=== PATIENT | female | born 1975 | race Caucasian/White ===

== ENCOUNTER → 2020-06-21 13:38 | Outpatient (BNVA) | payer SELFPAY | PROVIDERS: PCP Nurse Practitioner Family; Visit Provider Physician Assistant | DX: E66.9 Obesity, unspecified (principal); Z68.38 Body mass index [BMI] 38.0-38.9, adult; Z98.84 Bariatric surgery status | CPT/HCPCS: 99214 ==

== ENCOUNTER 2020-06-29 02:07 | Outpatient (REF) | payer MEDICAID, SELFPAY ==
[2020-06-29 04:57] LABS: SARS COV2 PCR INHOUSE NEGATIVE (Negative)
== END 2020-06-29 02:08 | disposition home or self-care (01) ==
LOC: HO.LAB 02:07
PROVIDERS: Visit Provider Internal Medicine
DX: Z20.828 Contact with and (suspected) exposure to other viral communicable diseases (principal)
CPT/HCPCS: 87635

== ENCOUNTER 2020-07-01 10:56 | Outpatient (REF) | payer MEDICAID, SELFPAY ==
[2020-07-01 11:17] LABS: COVID-19 Test Negative (Negative)
== END 2020-07-01 10:57 | disposition home or self-care (01) ==
LOC: HO.LAB 10:56
PROVIDERS: Visit Provider Internal Medicine
DX: Z20.828 Contact with and (suspected) exposure to other viral communicable diseases (principal)
CPT/HCPCS: 87635

== ENCOUNTER 2020-07-04 06:59 | Outpatient (REF) | payer MEDICAID, SELFPAY ==
[2020-07-04 07:40] LABS: MANUAL DIFF FLAG NO
[2020-07-04 07:46] LABS: Basophils Absolute Auto 0.1 X10*3/uL (0.0-0.2); Basophils Percent Auto 0.5 % (0-2); Eosinophils Absolute Auto 0.1 X10*3/uL (0.0-0.4); Eosinophils Percent Auto 0.5 % (0-4); Hematocrit 31.2 % (37-47); Hemoglobin 9.4 g/dl (12.0-16.0); Imm Gran Abs Auto 0.03 X10*3/uL (0.00-0.03); Imm Gran Pct Auto 0.3 % (0.0-0.4); Lymphocytes Absolute Auto 3.1 X10*3/uL (1.2-4.9); Lymphocytes Percent Auto 29.1 % (20-40); Mean Corpuscular HGB Conc 30.1 g/dl (31.0-35.0); Mean Corpuscular Hemoglobin 25.3 pg (27.0-33.0); Mean Corpuscular Volume 84.1 fL (80-98); Mean Platelet Volume 9.1 fL (9.4-12.3); Monocytes Absolute Auto 0.5 X10*3/uL (0.1-1.2); Monocytes Percent Auto 4.9 % (2-11); Neutrophils Absolute Auto 6.8 X10*3/uL (2.0-8.3); Neutrophils Percent Auto 64.7 % (45-73); Platelet Count 570 X10*3/uL (160-400); Red Blood Count 3.71 X10*6/uL (4.20-5.50); Red Cell Distribution Width 14.2 % (11.0-16.0); White Blood Count 10.5 X10*3/uL (4.8-10.8)
[2020-07-04 08:33] LABS: C Reactive Protein 0.27 mg/dL (< or = 0.50); Cholesterol 221 mg/dL; HDL Cholesterol 56 mg/dL; Iron 16 mcg/dL (30-160); LDL Cholesterol Calculated 133 mg/dl; Percent Iron Saturation 3 % (15-50); Total Iron Binding Capacity 463 mcg/dL (228-428); Triglycerides 162 mg/dL; Unsaturated Iron Binding 447 ug/dL
[2020-07-04 08:59] LABS: TSH reflex Free T4 2.37 mIU/mL (0.32-4.0); Vitamin D 25-OH Total 14.7 ng/mL (>30)
[2020-07-04 09:50] LABS: Estimated Average Glucose 108 mg/dL; Hemoglobin A1c % 5.4 %
[2020-07-04 10:08] LABS: Folate 8.8 ng/mL (> or = 4.0); Vitamin B12 474 pg/mL (200-900)
[2020-07-04 10:34] LABS: Ferritin < 1 ng/mL (10-250)
[2020-07-05 19:27] LABS: Calcium (PTHI) 9.2 mg/dL (8.6-10.2); PTHI 77 pg/mL (14-64)
[2020-07-08 13:07] LABS: Vitamin B1 <6 nmol/L (8-30)
[2020-07-08 21:32] LABS: Zinc 70 mcg/dL (60-130)
[2020-07-10 13:42] LABS: Vitamin A 53 mcg/dL (38-98)
== END 2020-07-04 07:00 | disposition home or self-care (01) ==
LOC: HO.LAB 06:59
PROVIDERS: PCP Nurse Practitioner Family; Visit Provider Physician Assistant
DX: E66.3 Overweight (principal); Z98.84 Bariatric surgery status
CPT/HCPCS: 36415; 80061; 82306; 82607; 82728; 82746; 83036; 83525; 83540; 83970; 84425; 84443; 84590; 84630; 85025; 86140

== ENCOUNTER 2020-07-05 06:28 | Outpatient (REF) | payer MEDICAID, SELFPAY ==
[2020-07-05 06:49] LABS: COVID-19 Test Negative (Negative)
== END 2020-07-05 06:29 | disposition home or self-care (01) ==
LOC: HO.LAB 06:28
PROVIDERS: Visit Provider Internal Medicine
DX: Z20.828 Contact with and (suspected) exposure to other viral communicable diseases (principal)
CPT/HCPCS: 87635

== ENCOUNTER 2020-07-26 17:17 | Outpatient (REF) | payer OTHER, SELFPAY ==
[2020-07-27 10:13] LABS: COVID-19 Test Negative (Negative); IDNOW Serial# 55D5AD1C
== END 2020-07-26 17:18 | disposition home or self-care (01) ==
LOC: HO.EMPCOV 17:17
PROVIDERS: PCP Nurse Practitioner Family; Visit Provider Internal Medicine
DX: Z20.828 Contact with and (suspected) exposure to other viral communicable diseases (principal)
CPT/HCPCS: 87635; C9803

== ENCOUNTER 2020-12-12 03:41 | Emergency (ER) | payer MEDICAID, SELFPAY ==
--- NOTE | 2020-12-12 | ECG_ITS ---
Test Reason : CP Blood Pressure : / mmHG Vent. Rate : 074 BPM Atrial Rate : 074 BPM P-R Int : 170 ms QRS Dur : 098 ms QT Int : 402 ms P-R-T Axes : 035 029 017 degrees QTc Int : 446 ms Normal sinus rhythm Normal ECG No previous ECGs available Referred By: Dora Wooten Electronically Signed By:KARTHIK AMIN MD
--- NOTE | ~2020-12-12 | XR_ITS ---
EXAMINATION: XR CHEST CLINICAL INFORMATION: Chest pain COMPARISON: 06.29.2018 TECHNIQUE: Frontal view of the chest was obtained. FINDINGS: No significant abnormality is noted involving the heart, lungs, mediastinum, bony thorax or soft tissues. XR/XR chest 1V IMPRESSION: Unremarkable examination.
[2020-12-12 03:47] VITALS: BP 150/84; PULSE 72; RESP 13; TEMP 36.9; O2SAT 100; BMI 35.5
[2020-12-12 03:53] VITALS: BP 150/84; PULSE 74; RESP 17; TEMP 36.9; O2SAT 100
[2020-12-12 04:00] VITALS: BP 142/91; PULSE 72; RESP 14
--- NOTE | 2020-12-12 04:12 | ED_ITS ---
HPI - Chest Pain General Chief Complaint: Chest Pain Stated Complaint: chest pain Time Seen by Provider: 12/12/20 04:12 History of Present Illness HPI narrative: Patient is a 45-year-old female presents today for having chest pain. The pain is mid chest. It is dull. It is associated with no shortness of breath. No diaphoresis. No fever. Patient denies any history of coughing congestion upper respiratory symptoms. 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 Patient has a history of hypertension. Family history of coronary artery disease. No history of smoking. Never had heart attack. Never had a stroke. Has a history of SVT in the past. Patient had recent stressful event at home. Related Data Home Medications Medication Instructions Recorded Confirmed gabapentin 600 mg tablet 600 mg PO TID 06/21/20 07/07/20 lisinopril 20 mg tablet 20 mg PO DAILY 06/21/20 07/07/20 loratadine 10 mg tablet 10 mg PO DAILY 06/21/20 07/07/20 metoprolol succinate 25 mg 12.5 mg PO DAILY 06/21/20 07/07/20 tablet,extended release 24 hr montelukast 10 mg tablet 10 mg PO DAILY 06/21/20 07/07/20 ondansetron HCl 4 mg tablet 4 mg PO Q6H 06/21/20 07/07/20 pantoprazole 40 mg tablet,delayed 40 mg PO DAILY 06/21/20 07/07/20 release tramadol 50 mg tablet 50 mg PO Q6H PRN 06/21/20 07/07/20 venlafaxine 150 mg 150 mg PO DAILY 06/21/20 07/07/20 capsule,extended release 24 hr venlafaxine 75 mg capsule,extended 75 mg PO DAILY 06/21/20 07/07/20 release 24 hr ferrous sulfate 325 mg (65 mg 325 mg PO DAILY 07/07/20 07/07/20 iron) tablet tranexamic acid 650 mg tablet 1,300 mg PO TID 07/07/20 07/07/20 Previous Rx's Medication Instructions Recorded cholecalciferol (vitamin D3) 50 50 mcg PO DAILY #30 cap 07/07/20 mcg (2,000 unit) capsule Allergies Allergy/AdvReac Type Severity Reaction Status Date / Time griseofulvin Allergy Severe RASH Verified 12/12/20 04:35 [From BIJU-PEG (ULTRAMICROSIZE)] shellfish derived Allergy Severe SWELLING Verified 12/12/20 04:35 [SHELLFISH DERIVED] avocado [AVOCADO] Allergy Unknown SWELLING Verified 12/12/20 04:35 iodine [IODINE] Allergy Unknown RASH Verified 12/12/20 04:35 nut - unspecified [NUTS] Allergy Unknown SWELLING Verified 12/12/20 04:35 peach [PEACHES] Allergy Unknown SWELLING Verified 12/12/20 04:35 Biju-PEG Allergy Unknown rash Uncoded 03/24/20 00:00 shellfish Allergy Unknown rash Uncoded 05/03/14 00:00 SHELLFISH, Avocado Allergy Unknown swelling Uncoded 03/24/20 00:00 Review of Systems Review of Systems: Positive chest pain No cough no congestion or upper respiratory symptoms All systems reviewed otherwise negative Yes all other systems are reviewed and are negative [facility] Past Medical History Attestation statement: The following information was validated with the patient. Medical History Arthritis Back injury Depression Gastric band malfunction Hypertension Obesity Tonsillectomy planned Surgical History H/O fasciotomy History of carpal tunnel release History of lumbar laminectomy Hx laparoscopic cholecystectomy S/P gastric bypass Social History Social History Smoking Status: Never smoker Advance Directives: No Advance Directives Information Provided: No Physical Exam Vital Signs: Vital Signs: Last Vital Signs Temp 98.4 F 12/12/20 03:53 Pulse 72 12/12/20 04:00 Resp 14 12/12/20 04:00 BP 142/91 H 12/12/20 04:00 Pulse Ox 100 12/12/20 03:53 Body Mass Index 35.5 Appearance: Alert. Oriented X3. No acute distress. Eyes: Pupils equal, round and reactive to light. ENT: Pharynx normal. Neck: Normal inspection. Neck supple. No lymph nodes noted. No crepitus CVS: Normal heart rate and rhythm. Pulses normal. Normal S1 and S2 Respiratory: No respiratory distress. Breath sounds normal. No Wheezing. No rales Abdomen: Soft and nontender. No rigidity. No distention. good BS x4 Skin: Skin warm and dry. Normal skin color. Normal skin turgor. Extremities: No lower extremity edema. Neurovascular intact to all extremities. No Lacerations. No Rash Neuro: Oriented X 3. No motor deficit. No sensory deficit. Moving all extermities. No slurred speech MDM - Chest Pain MDM Narrative Medical decision making narrative: Patient's history not consistent with myocardial infarction. She does have 2 risk factors. Her chest pain started j ust prior to arrival. Her 1st set of troponin is negative. Asked patient to get a 2nd set of troponin but she refused. She has to send her kids off to school. Patient told the condition worsen to return. She understood that she is taking some risk by not having a 2nd set enzyme when she does not have chest pain for more than 6 hours. Patient states understanding. Understood there is risk of myocardial infarction. She is going to follow up closely with her doctor. Her symptoms have since resolved. Currently stable condition. Lab Data Result diagrams: 12/12/20 04:27 12/12/20 04:27 Labs: Lab Results 12/12/20 12/12/20 12/12/20 Range/Units 04:27 04:27 04:27 WBC 9.7 (4.8-10.8) X10*3/uL RBC 3.86 L (4.20-5.50) X10*6/uL Hgb 8.3 L (12.0-16.0) g/dl Hct 29.3 L (37-47) % MCV 75.9 L (80-98) fL MCH 21.5 L (27.0-33.0) pg MCHC 28.3 L (31.0-35.0) g/dl RDW 17.8 H (11.0-16.0) % Plt Count 464 H (160-400) X10*3/uL MPV 9.2 L (9.4-12.3) fL Immature Gran % (Auto) 0.4 (0.0-0.4) % Neut % (Auto) 57.5 (45-73) % Lymph % (Auto) 33.2 (20-40) % [place] % (Auto) 6.0 (2-11) % Eos % (Auto) 2.5 (0-4) % Baso % (Auto) 0.4 (0-2) % Lymph # (Auto) 3.2 (1.2-4.9) X10*3/uL [place] # (Auto) 0.6 (0.1-1.2) X10*3/uL Eos # (Auto) 0.2 (0.0-0.4) X10*3/uL Baso # (Auto) 0.0 (0.0-0.2) X10*3/uL Abs Immat Gran (auto) 0.04 H (0.00-0.03) X10*3/uL Absolute Neuts (auto) 5.6 (2.0-8.3) X10*3/uL Absolute Nucleated RBC 0.000 (0.0-0.012) X10*3/uL Nucleated RBC % (auto) 0.0 (0.0-0.2) /100WBC Hold Blue Top SEE NOTE Sodium 138 (135-145) mmol/L Potassium 4.5 (3.3-5.1) mmol/L Chloride 106 (96-108) mmol/L Carbon Dioxide 24 (22-29) mmol/L Anion Gap 13 (12-20) BUN 14 (9-16) mg/dL Creatinine 0.81 (0.5-1.4) mg/dL Estim Creat Clear Calc 104.5 Estimated GFR > 60 Random Glucose 103 (60-115) mg/dL Calcium 8.9 (8.4-10.2) mg/dL Total Bilirubin 0.2 (0.0-1.0) mg/dL Direct Bilirubin < 0.2 (0.0-0.5) mg/dL AST 18 (5-31) U/L ALT 17 (0-31) U/L Alkaline Phosphatase 62 (39-117) U/L Troponin I High Sens (<3.5-17.0) ng/L Total Protein 6.6 (6.5-8.0) g/dL Albumin 3.9 (3.5-5.0) g/dL Lipase 36 (8-78) U/L 12/12/20 Range/Units 04:27 WBC (4.8-10.8) X10*3/uL RBC (4.20-5.50) X10*6/uL Hgb (12.0-16.0) g/dl Hct (37-47) % MCV (80-98) fL MCH (27.0-33.0) pg MCHC (31.0-35.0) g/dl RDW (11.0-16.0) % Plt Count (160-400) X10*3/uL MPV (9.4-12.3) fL Immature Gran % (Auto) (0.0-0.4) % Neut % (Auto) (45-73) % Lymph % (Auto) (20-40) % [place] % (Auto) (2-11) % Eos % (Auto) (0-4) % Baso % (Auto) (0-2) % Lymph # (Auto) (1.2-4.9) X10*3/uL [place] # (Auto) (0.1-1.2) X10*3/uL Eos # (Auto) (0.0-0.4) X10*3/uL Baso # (Auto) (0.0-0.2) X10*3/uL Abs Immat Gran (auto) (0.00-0.03) X10*3/uL Absolute Neuts (auto) (2.0-8.3) X10*3/uL Absolute Nucleated RBC (0.0-0.012) X10*3/uL Nucleated RBC % (auto) (0.0-0.2) /100WBC Hold Blue Top Sodium (135-145) mmol/L Potassium (3.3-5.1) mmol/L Chloride (96-108) mmol/L Carbon Dioxide (22-29) mmol/L Anion Gap (12-20) BUN (9-16) mg/dL Creatinine (0.5-1.4) mg/dL Estim Creat Clear Calc Estimated GFR Random Glucose (60-115) mg/dL Calcium (8.4-10.2) mg/dL Total Bilirubin (0.0-1.0) mg/dL Direct Bilirubin (0.0-0.5) mg/dL AST (5-31) U/L ALT (0-31) U/L Alkaline Phosphatase (39-117) U/L Troponin I High Sens < 3.5 (<3.5-17.0) ng/L Total Protein (6.5-8.0) g/dL Albumin (3.5-5.0) g/dL Lipase (8-78) U/L ECG Data ECG #1: Interpretation: Sinus heart rate is 75 IA QRS QT within normal limits there is no acute ST segment elevation noted Discharge Plan Discharge Clinical Impression: Chest pain Patient Disposition: Home, Self-Care Instructions: Chest Pain (ED) Prescriptions: No Action loratadine [Allergy Relief (loratadine)] 10 mg tablet 10 mg PO DAILY RF: 0 montelukast [Singulair] 10 mg tablet 10 mg PO DAILY RF: 0 ondansetron HCl [Zofran] 4 mg tablet 4 mg PO Q6H RF: 0 venlafaxine [Effexor XR] 75 mg capsule,extended release 24hr 75 mg PO DAILY RF: 0 venlafaxine [Effexor XR] 150 mg capsule,extended release 24hr 150 mg PO DAILY RF: 0 lisinopril 20 mg tablet 20 mg PO DAILY RF: 0 gabapentin 600 mg tablet 600 mg PO TID RF: 0 pantoprazole 40 mg tablet,delayed release (DR/EC) 40 mg PO DAILY RF: 0 metoprolol succinate 25 mg tablet extended release 24 hr 12.5 mg PO DAILY RF: 0 tramadol 50 mg tablet 50 mg PO Q6H PRNRF: 0 cholecalciferol (vitamin D3) 50 mcg (2,000 unit) capsule 50 mcg PO DAILY Qty: 30 RF: 11 ferrous sulfate 325 mg (65 mg iron) tablet 325 mg PO DAILY RF: 0 tranexamic acid [Lysteda] 650 mg tablet 1,300 mg PO TID RF: 0
[2020-12-12 04:33] LABS: Basophils Percent Auto 0.4 % (0-2); Eosinophils Absolute Auto 0.2 X10*3/uL (0.0-0.4); Eosinophils Percent Auto 2.5 % (0-4); Hematocrit 29.3 % (37-47); Hemoglobin 8.3 g/dl (12.0-16.0); Imm Gran Abs Auto 0.04 X10*3/uL (0.00-0.03); Imm Gran Pct Auto 0.4 % (0.0-0.4); Lymphocytes Absolute Auto 3.2 X10*3/uL (1.2-4.9); Lymphocytes Percent Auto 33.2 % (20-40); MANUAL DIFF FLAG NO; Mean Corpuscular HGB Conc 28.3 g/dl (31.0-35.0); Mean Corpuscular Hemoglobin 21.5 pg (27.0-33.0); Mean Corpuscular Volume 75.9 fL (80-98); Mean Platelet Volume 9.2 fL (9.4-12.3); Monocytes Absolute Auto 0.6 X10*3/uL (0.1-1.2); Neutrophils Absolute Auto 5.6 X10*3/uL (2.0-8.3); Neutrophils Percent Auto 57.5 % (45-73); Platelet Count 464 X10*3/uL (160-400); Red Blood Count 3.86 X10*6/uL (4.20-5.50); Red Cell Distribution Width 17.8 % (11.0-16.0); White Blood Count 9.7 X10*3/uL (4.8-10.8)
[2020-12-12] MEDS: Magnesium Hydrox/Alum Hydrox 30 ML ORAL.SUSP PO (04:35)
[2020-12-12] MEDS: Aspirin 81 MG TAB.CHEW 324 MG PO (04:35)
[2020-12-12 04:55] LABS: Troponin-I High Sensitivity < 3.5 ng/L (<3.5-17.0)
[2020-12-12 05:00] LABS: Alanine Aminotransferase 17 U/L (0-31); Albumin Level 3.9 g/dL (3.5-5.0); Alkaline Phosphatase 62 U/L (39-117); Anion Gap 13 (12-20); Aspartate Amino Transferase 18 U/L (5-31); Bilirubin Direct < 0.2 mg/dL (0.0-0.5); Bilirubin Total 0.2 mg/dL (0.0-1.0); Blood Urea Nitrogen 14 mg/dL (9-16); Calcium 8.9 mg/dL (8.4-10.2); Carbon Dioxide 24 mmol/L (22-29); Chloride 106 mmol/L (96-108); Creatinine Clr Calc Pharmacy 104.5; Estimated Glomerular Filt Rate > 60; Glucose Random 103 mg/dL (60-115); Lipase 36 U/L (8-78); Potassium 4.5 mmol/L (3.3-5.1); Sodium 138 mmol/L (135-145); Total Protein 6.6 g/dL (6.5-8.0)
== END 2020-12-12 05:15 | disposition home or self-care (01) ==
PROVIDERS: Emergency Provider Emergency Medicine Emergency Medical Services
DX: R07.9 Chest pain, unspecified (principal); Z98.84 Bariatric surgery status; Z79.899 Other long term (current) drug therapy
CPT/HCPCS: 36415; 71045; 80048; 80076; 83690; 84484; 85025; 93005; 99283; 99284

== ENCOUNTER 2021-04-14 22:58 | Emergency (ER) | payer MEDICAID, SELFPAY ==
[2021-04-14 23:00] VITALS: BP 173/99; PULSE 78; RESP 16; TEMP 37.1; O2SAT 98; BMI 35.2
--- NOTE | 2021-04-15 00:19 | ED.BACK ---
HPI - Back Pain/Injury General Chief Complaint: Back Pain/Injury Stated Complaint: Back pain Time Seen by Provider: 04/14/21 23:24 Source: patient Mode of arrival: ambulatory Limitations: no limitations History of Present Illness HPI Narrative: Patient comes to the emergency room complaining of a burning sensation running from her lower back down her thigh posteriorly on the left side. Patient states that she is known to have a back injury since 2017 which occurred at work. Patient has tried multiple [id number]-bqv-[id number] medications to help with the pain, at this time the pain is 10/10. Pain is worse with hip flexion extension answered and rotational movements. Patient states that she has an MRI scheduled early next week. Patient says that her neurosurgeon believes that she may be a candidate for surgery for sciatica versus bulge disc. Patient denies saddle anesthesia, denies urine/fecal incontinence/retention. Although, patient mentions that she has has noticed that she over reactive bladder Related Data Home Medications Medication Instructions Recorded Confirmed gabapentin 600 mg tablet 600 mg PO TID 06/21/20 07/07/20 lisinopril 20 mg tablet 20 mg PO DAILY 06/21/20 07/07/20 loratadine 10 mg tablet (Allergy 10 mg PO DAILY 06/21/20 07/07/20 Relief (loratadine)) metoprolol succinate 25 mg 12.5 mg PO DAILY 06/21/20 07/07/20 tablet,extended release 24 hr montelukast 10 mg tablet 10 mg PO DAILY 06/21/20 07/07/20 (Singulair) ondansetron HCl 4 mg tablet 4 mg PO Q6H 06/21/20 07/07/20 (Zofran) pantoprazole 40 mg tablet,delayed 40 mg PO DAILY 06/21/20 07/07/20 release tramadol 50 mg tablet 50 mg PO Q6H PRN 06/21/20 07/07/20 venlafaxine 150 mg 150 mg PO DAILY 06/21/20 07/07/20 capsule,extended release 24 hr (Effexor XR) venlafaxine 75 mg capsule,extended 75 mg PO DAILY 06/21/20 07/07/20 release 24 hr (Effexor XR) ferrous sulfate 325 mg (65 mg 325 mg PO DAILY 07/07/20 07/07/20 iron) tablet tranexamic acid 650 mg tablet 1,300 mg PO TID 07/07/20 07/07/20 (Lysteda) Previous Rx's Medication Instructions Recorded cholecalciferol (vitamin D3) 50 50 mcg PO DAILY #30 cap 07/07/20 mcg (2,000 unit) capsule oxycodone-acetaminophen 5 mg-325 1 tab PO TID PRN #10 tab 04/15/21 mg tablet (Percocet) Allergies Allergy/AdvReac Type Severity Reaction Status Date / Time griseofulvin Allergy Severe RASH Verified 12/12/20 04:35 [From BIJU-PEG (ULTRAMICROSIZE)] shellfish derived Allergy Severe SWELLING Verified 12/12/20 04:35 [SHELLFISH DERIVED] avocado [AVOCADO] Allergy Unknown SWELLING Verified 12/12/20 04:35 iodine [IODINE] Allergy Unknown RASH Verified 12/12/20 04:35 nut - unspecified [NUTS] Allergy Unknown SWELLING Verified 12/12/20 04:35 peach [PEACHES] Allergy Unknown SWELLING Verified 12/12/20 04:35 Biju-PEG Allergy Unknown rash Uncoded 03/24/20 00:00 shellfish Allergy Unknown rash Uncoded 05/03/14 00:00 SHELLFISH, Avocado Allergy Unknown swelling Uncoded 03/24/20 00:00 Review of Systems Review of Systems: Constitutional : No Weight loss, No Fever, No Chills, No Night Sweats, No Fatigue, No Malaise ENT/Mouth : No Hearing loss, No Ear Pain, No Nasal Congestion, No Sinus Pain, No Hoarseness, No sore throat, No Rhinorrhea, No Swallowing Difficulty Eyes: No Eye Pain, No Swelling, No Redness, No Foreign Body, No Discharge, No Vision Changes Cardiovascular : No Chest Pain, No SOB, No Dyspnea on Exertion, No Orthopnea, No Edema, No Palpitations Respiratory : No Cough, No Sputum, No Wheezing, No Smoke Exposure, No Dyspnea Gastrointestinal : No Nausea, No Vomiting, No Diarrhea, No Constipation, No abdominal Pain, No Hematochezia, No Melena Genitourinary : no irregular bleeding, No Dysuria, No Urinary Frequency, No Hematuria, No Urinary Incontinence, complaining of over reactive bladder, no incontinence, no urinary retention, No Flank Pain, No Urinary Flow Changes, No Hesitancy Musculoskeletal : Complaining of lower back pain radiating down the left leg posteriorly, No joint pain, No Myalgias, No Joint Swelling Skin : No Skin Lesions, No rash Neuro : No Weakness, No Numbness, No Paresthesias, No Loss of Consciousness, No Dizziness, No Headache Psych : No Anxiety/Panic, No Depression, No SI/HI/AH/VH, No Social Issues, Heme/Lymph: No Bruising, No Bleeding,No Lymphadenopathy Endocrine : No Polyuria, No Polydipsia, No Temperature Intolerance [facility] Past Medical History Medical History Arthritis Back injury Depression Gastric band malfunction Hypertension Obesity Tonsillectomy planned Surgical History H/O fasciotomy History of carpal tunnel release History of hysterectomy History of lumbar laminectomy Hx laparoscopic cholecystectomy S/P gastric bypass Social History Social History Advance Directives: No Advance Directives Information Provided: No Physical Exam Vital Signs: Vital Signs: Last Vital Signs Temp 98.8 F 04/14/21 23:00 Pulse 78 04/14/21 23:00 Resp 16 04/14/21 23:00 BP 173/99 H 04/14/21 23:00 Pulse Ox 98 04/14/21 23:00 Body Mass Index 35.2 Course Course Course Narrative: I discussed with the patient that when she has the MRI done, they can determine if she is a candidate for surgery versus physical therapy. In the meantime we can provide pain control for her. Patient was given 1 dose of Decadron IM and Dilaudid IM. Discharge Plan Discharge Clinical Impression: Lumbar radiculopathy Patient Disposition: Home, Self-Care Instructions: Lumbar Radiculopathy (ED), Lower Back Exercises (ED) Additional Instructions: Please follow-up with your primary care physician tomorrow. If you have any worsening or new symptoms, please return to the emergency room or call 911 Prescriptions: New oxycodone-acetaminophen [Percocet] 5-325 mg tablet 1 tab PO TID PRN (Reason: pain) Qty: 10 RF: 0 No Action loratadine [Allergy Relief (loratadine)] 10 mg tablet 10 mg PO DAILY RF: 0 montelukast [Singulair] 10 mg tablet 10 mg PO DAILY RF: 0 ondansetron HCl [Zofran] 4 mg tablet 4 mg PO Q6H RF: 0 venlafaxine [Effexor XR] 75 mg capsule,extended release 24hr 75 mg PO DAILY RF: 0 venlafaxine [Effexor XR] 150 mg capsule,extended release 24hr 150 mg PO DAILY RF: 0 lisinopril 20 mg tablet 20 mg PO DAILY RF: 0 gabapentin 600 mg tablet 600 mg PO TID RF: 0 pantoprazole 40 mg tablet,delayed release (DR/EC) 40 mg PO DAILY RF: 0 metoprolol succinate 25 mg tablet extended release 24 hr 12.5 mg PO DAILY RF: 0 tramadol 50 mg tablet 50 mg PO Q6H PRNRF: 0 cholecalciferol (vitamin D3) 50 mcg (2,000 unit) capsule 50 mcg PO DAILY Qty: 30 RF: 11 ferrous sulfate 325 mg (65 mg iron) tablet 325 mg PO DAILY RF: 0 tranexamic acid [Lysteda] 650 mg tablet 1,300 mg PO TID RF: 0
[2021-04-15] MEDS: dexAMETHasone sod phosphate 4 MG/ML VIAL 6 MG IM (00:44)
[2021-04-15 00:45] VITALS: RESP 18
[2021-04-15] MEDS: HYDROmorphone HCl 1 MG/ML SYRINGE IM (00:45)
== END 2021-04-15 01:22 | disposition home or self-care (01) ==
PROVIDERS: Emergency Provider Emergency Medicine
DX: M54.16 Radiculopathy, lumbar region (principal); I10 Essential (primary) hypertension; E66.9 Obesity, unspecified
CPT/HCPCS: 96372; 99283; 99284; J1100; J1170

== ENCOUNTER → 2021-10-03 10:00 | Outpatient (BNVA) | payer MEDICAID, SELFPAY | PROVIDERS: PCP Nurse Practitioner Family; Visit Provider Anesthesiology | DX: M96.1 Postlaminectomy syndrome, not elsewhere classified (principal); M46.1 Sacroiliitis, not elsewhere classified; G89.4 Chronic pain syndrome | CPT/HCPCS: 99202 ==

== ENCOUNTER 2022-08-12 10:21 | Outpatient (REF) | payer MEDICAID, SELFPAY ==
[2022-08-12 10:35] LABS: MANUAL DIFF FLAG NO
[2022-08-12 10:50] LABS: Basophils Absolute Auto 0.1 X10*3/uL (0.0-0.2); Basophils Percent Auto 0.8 % (0-2); Eosinophils Percent Auto 0.4 % (0-4); Hematocrit 30.3 % (37.0-47.0); Imm Gran Abs Auto 0.04 X10*3/uL (0.00-0.03); Imm Gran Pct Auto 0.4 % (0.0-0.4); Lymphocytes Absolute Auto 1.6 X10*3/uL (1.2-4.9); Lymphocytes Percent Auto 17.4 % (20-40); Mean Corpuscular HGB Conc 29.7 g/dl (31.0-35.0); Mean Corpuscular Hemoglobin 22.3 pg (27.0-33.0); Mean Platelet Volume 9.7 fL (9.4-12.3); Monocytes Absolute Auto 0.2 X10*3/uL (0.1-1.2); Monocytes Percent Auto 2.6 % (2-11); Neutrophils Percent Auto 78.4 % (45-73); Platelet Count 498 X10*3/uL (160-400); Red Blood Count 4.04 X10*6/uL (4.20-5.50); Red Cell Distribution Width 17.9 % (11.0-16.0); White Blood Count 8.9 X10*3/uL (4.8-10.8)
[2022-08-12 11:43] LABS: Alanine Aminotransferase 29 U/L (0-31); Alkaline Phosphatase 59 U/L (39-117); Anion Gap 10 (12-20); Aspartate Amino Transferase 24 U/L (5-31); Bilirubin Total 0.4 mg/dL (0.0-1.0); Blood Urea Nitrogen 13 mg/dL (9-16); Calcium 9.6 mg/dL (8.4-10.2); Carbon Dioxide 25 mmol/L (22-29); Chloride 109 mmol/L (96-108); Estimated Glomerular Filt Rate > 60; Glucose Random 85 mg/dL (60-115); Iron 30 mcg/dL (30-160); Percent Iron Saturation 7 % (15-50); Potassium 4.5 mmol/L (3.3-5.1); Sodium 139 mmol/L (135-145); Thyroid Stimulating Hormone 0.72 uIU/mL (0.32-4.0); Total Iron Binding Capacity 428 mcg/dL (228-428); Total Protein 6.6 g/dL (6.5-8.0); Unsaturated Iron Binding 398 ug/dL
[2022-08-12 12:00] LABS: Folate 14.2 ng/mL (> or = 4.0); Vitamin B12 247 pg/mL (200-900)
[2022-08-14 15:34] LABS: Gliadin Deamidated IgA Ab <1.0 U/mL; Gliadin Deamidated IgG Ab <1.0 U/mL; Transglutaminase IgA <1.0 U/mL
[2022-08-16 14:09] LABS: Endomysial IgA Antibody Negative (Negative)
== END 2022-08-12 10:22 | disposition home or self-care (01) ==
LOC: HO.LAB 10:21
PROVIDERS: PCP Nurse Practitioner Family; Visit Provider Physician Assistant
DX: K52.9 Noninfective gastroenteritis and colitis, unspecified (principal); K59.09 Other constipation; D64.9 Anemia, unspecified
CPT/HCPCS: 36415; 80053; 82607; 82746; 83540; 84443; 85025; 86231; 86258; 86364; 99202

== ENCOUNTER 2025-05-31 12:57 | Outpatient (AMB) | payer MEDICARE, MEDICAID, SELFPAY ==
--- OUTSIDE RECORDS SUMMARY | 2016-11-07 01:00 | XMS_ITS | Encounter Summary ---
Author Organization [facility] Address [address] [place] [phone] Phone Care Team Providers Care Marketing Technology Coordinator Name Role Phone Unavailable Primary Care Provider Unavailabl e Encounter Details Date Type Department Care Team (Late st Contact Info) Description 11/07/2016 Hospital Encounter [facility] Imaging [address] [place] [address] Zoie Rao MD [address] [place] [id number] [email or web address] Social History Tobacco Use Types Packs/Day Years Used Date Smoking Tobacco: Never Smokeless Tobacco: Never Alcohol Use Standard Drinks/Week Comments No 0 (1 standard drink = 0.6 oz pur e alcohol) Education Answer Date Recorded Are you interested in more education? Not on guy e 01/03/2023 Are you concerned about learning? Not on file 01/03/2023 No 01/03/2023 No 01/03/2023 Digital Access Answer Date Recorded No 01/31/2023 No 01/31/2023 No 01/31/2023 Reliable internet access at home? Not on file 01/31/2023 Device with a working camera? Not on file Intimate Partner Violence Answer Date R ecorded Are you denied basic needs s uch as food, clothing, or medical care? No 10/07/2022 In the past 12 months have y ou been in a relationship with a person who hurts, threatens, or tries to control you? No 10/07/2022 Are you denied basic needs s uch as food, clothing, or medical care? No 10/07/2022 In the past 12 months have y ou been in a relationship with a person who hurts, threatens, or tries to control you? No 10/07/2022 Comments No Sex and Gender Information Value Date Recorded Sex Assigned at Female 02/07/2021 4:12 PM EDT Legal Sex Female 4:03 PM EDT Gender Identity Female 02/07/2021 4:12 PM EDT Sexual Orientation Straight 02/07/2021 4: 12 PM EDT documented as of this encounter Functional Status * Calculated C-SSRS Risk Score (Lifetime/Recent) Answer Date of Assessment Author No Risk Indicated 10/07/2022 5:36 PM Nery Eduardo RN * [place] Suicide Severity Rating Scale (Screener/Recent Self-Report) Question Answer Date of Assessment Author 1. Wish to be (Past 1 Month) No 10/07/2022 5:36 PM Stephanie Eduardo RN 2. Non-Specific Active Suicidal Thoughts (Past 1 Month) No 10/07/2022 5:36 PM Stephanie Eduardo RN 6. Suicidal Behavior (Lifetime) No 10/07/2022 5:36 PM Stephanie Eduardo RN documented as of this encounter Plan of Treatment Not on file documented as of this encounter Procedures Procedure Name Priority Date/Time Associated Diagnosis Comments XR SPINE OUTSIDE (NO INTERPRETATION) Routine 11/07/2016 12:00 AM EST documented in this encounter Results * XR SPINE OUTSIDE(NO INTERPRETATION) (11/07/2016 12:00 AM EST) Narrative [facility] IMG INTERFACES - 12/12/2017 10:08 AM EDT This study is for PACS storage only and not for interpretation. us Zoie Rao MD IMG OUTSIDE IMAGING W/OUT INTER PRETATION Final Result [facility] IMG INTERFACES documented in this encounter Visit Diagnoses Not on filedocumented in this encounter Additional Source Comments The information contained in this document represents components of the legal health record. It is not the complete legal health record.[facility]
--- OUTSIDE RECORDS SUMMARY | 2016-11-25 | XMS_ITS | Encounter Summary ---
Author Organization [facility] Address [address] [facility] [address] [place] [phone] Phone Care Team Providers Care Featheredger And Reducer Machine Name Role Phone Unavailable Primary Care Provider Unavailabl e Reason for Visit * MRI/CAT Scan - Closed Specialty Diagnoses / Procedures Referred By Maricel t Referred To Contact Procedures MRI Spine (Bone) Outside (No Interpretation) Zoie Rao MD [address] [place] [phone] Phone: tel: fax: mailto:[email or web address] Referral ID Status Reason Start Date Expiration Date Visits Re quested Visits Authorized [id number] Closed 12/12/2017 12/12/2018 1 1 Encounter Details Date Type Department Care Team (Late st Contact Info) Description 11/25/2016 Hospital Encounter [facility] Imaging [address] [place] [address] Zoie Rao MD [address] [place] [id number] [email or web address] Social History Tobacco Use Types Packs/Day Years [...] 10/07/2022 5:36 PM Nery Eduardo RN * [place] Suicide Severity Rating Scale (Screener/Recent Self-Report) Question Answer Date of Assessment Author 1. Wish to be (Past 1 Month) No 10/07/2022 5:36 PM Stephanie Eduardo RN 2. Non-Specific Active Suicidal Thoughts (Past 1 Month) No 10/07/2022 5:36 PM Stephanie Eduardo, MICAH 6. Suicidal Behavior (Lifetime) No 10/07/2022 5:36 PM Stephanie Eduardo, MICAH documented as of this encounter Plan of Treatment Not on file documented as of this encounter Procedures Procedure Name Priority Date/Time Associated Diagnosis Comments MRI SPINE MUSCULOSKELETAL FOCUS OUTSIDE (NO INTERPRETATION) Routine 11/25/2016 12:00 AM EDT documented in this encounter Results * MRI Spine (Bone) Outside (No Interpretation) (11/25/2016 12:00 AM EDT) Narrative [facility] IMG INTERFACES - 12/12/2017 10:08 AM EDT This study is for PACS storage only and not for interpretation. us Zoie Rao MD IMG OUTSIDE IMAGING W/OUT INTER PRETATION Final Result [facility] IMG INTERFACES documented in this encounter Visit Diagnoses Not on filedocumented in this encounter Additional Source Comments The information contained in this document represents components of the legal health record. It is not the complete legal health record.[facility]
--- NOTE | 2025-05-31 13:09 | A.OFFVIS_ITS ---
Vital Signs 05/31/25 13:10 Height 5 ft 6 in Weight 268 lb BMI 43.3 BP 180/100 H Pulse 74 Pulse Oximetry (%) 99 Intake Visit Reasons: MAT Intake Allergies griseofulvin (From BIJU-PEG (ULTRAMICROSIZE)) Allergy (Severe, Verified 05/31/25 13:11) RASH shellfish derived (SHELLFISH DERIVED) Allergy (Severe, Verified 08/12/22 09:26) SWELLING avocado (AVOCADO) Allergy (Unknown, Verified 08/12/22 09:26) SWELLING iodine (IODINE) Allergy (Unknown, Verified 08/12/22 09:26) RASH nut - unspecified (NUTS) Allergy (Unknown, Verified 08/12/22 09:26) SWELLING peach (PEACHES) Allergy (Unknown, Verified 08/12/22 09:26) SWELLING apple Allergy (Verified 05/25/25 09:33) Mouth swells, throat swells, mouth itching shellfish Allergy (Unknown, Uncoded 08/19/22 14:24) rash, swelling HPI Comments Details: A 49-year-old female presents for a MAT intake for pain management, currently prescribed pregabalin and reports due to severe pain r/t back injury took 6 tablets of tramadol last night. Buprenorphine-naloxone is contraindicated with concurrent use pregabalin. Given the severity of the patient's pain level the buprenorphine-naloxone is not recommended. [facility] Medical History (Updated 05/31/25 @ 17:19 by Petty Villalpando SOLUTION DEVELOPER-C) History of stomach ulcers Neuropathy involving both lower extremities Seizure Chronic pain syndrome Bilateral sacroiliitis Postlaminectomy syndrome of lumbar region Gastric band malfunction Tonsillectomy planned Depression Arthritis Back injury Hypertension Obesity Surgical History (Updated 05/25/25 @ 09:30 by Ml Cooney RN) H/O spinal fusion History of hysterectomy History of lumbar laminectomy Hx laparoscopic cholecystectomy History of carpal tunnel release H/O fasciotomy S/P gastric bypass Social History (Updated 08/12/22 @ 12:57 by Raquel Hampton PA-C) Household Members: Family Household Members Other:: , kids Patient Tobacco Use Status: Never used Tobacco Current occupational status: disabled 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 The geographic analyst will provide additional information on available resources for pain management. Patient Instructions: - Follow up with a pain management clinic. - geographic analyst will be in contact to provide additional information on available resources for pain management. - Call with questions, concerns, or to report side effects/new onset of symptoms to [facility]. - The patient verbalized understanding and agreed with plan of care. Coding Level of Care Code New Pt Level 3 (95841) Diagnoses Pain R52 MAT Intake Nursing Intake Reason for visit: MAT - Pain Management Are you currently using?: No What are you taking?: Fentanyl patch 50 mcg -removed Monday 05/28. #6 50 mg tramadol last night- Pain management When was your last use?: 05/30/25 How much?: #6 50 mg tramadol What is your source of income?: disability What is your current relationship status?: Current PCP: Jared Sargent MA- [facility] Date of last visit: 04/01 Referral Source: [facility] Substance Abuse History Substance Abuse History (includes route, frequency and quantity): Fentanyl (patch-pain management), Oxycodone product, Other opioids (dilaudid) and Marijuana Social History Domestic Violence concerns: none Children: 3 Do you have a support system?: some family Current mode of transportation?: yes Where are you currently residing?: [place] Are you using contraception?: No IV Drug Use Have you ever shared needles?: No Have you ever belonged to a needle exchange program?: No Do you buy needles at a pharmacy?: No Have you ever overdosed?: No Number of lifetime overdoses: 0 Have you ever been hospitalized for an overdose?: No Was Naloxone administered?: No Recovery History Have you had any periods of recovery?: No Have you ever had inpatient treatment for your substance abuse disorder?: No Have you been in an inpatient detoxification program?: No Have you been in an inpatient Rehab/[place] [facility]?: No Have you been in an outpatient Methadone Maintenance program?: No Have you been in an outpatient Suboxone Maintenance program?: No Have you been in an AA/NA support program?: No Have you had a Recovery Support Pbx Technician?: No Have you had Peer Support?: No Behavioral Health History Do you have a current provider? If so, who?: yes diagnosis: anxiety, depression, PTSD History of other addictive behavior: no History of inpatient psychiatric hospitalization? If so, how many? Most Recent? Where?: no History of self harming thoughts?: No History of homicidal or suicidal intentions?: No Medical Conditions Endocarditis?: No Skin Infection: No Seizure related to withdrawal or overdose: Yes (seizure disorder-not due to withdrawal or overdose) Head or brain injury: No Hepatitis A (if yes, have you been treated?): No Hepatitis B (if yes, have you been treated?): No Hepatitis C (if yes, have you been treated?): No HIV (if yes, have you been treated?): No TB (if yes, have you been treated?): No Other: No Legal History History of incarceration: No Currently on parole or probation: No Court mandated programs: No Pending court cases: No DCF involvement: No
[2025-05-31 13:10] VITALS: BP 180/100; PULSE 74; O2SAT 99; BMI 43.3
--- OUTSIDE RECORDS SUMMARY | 2025-05-31 15:50 | XMS_ITS | Encounter Summary ---
Author Organization [facility] Address [address] [place] [address] [place] [phone] Phone Care Team Providers Care Motion Picture Camera Lens Technician Name Role Phone Guillermo Bass MD Primary Care Provider Guillermo Bass MD Primary Care Provider Encounter Details Date Type Department Care Team (Late st Contact Info) Description 03/26/2021 Procedure Pass [facility], Ct Scan - [address] [address] Social History Tobacco Use Types Packs/Day Years Used Date Smoking Tobacco: Never Smokeless Tobacco: Never Alcohol Use Standard Drinks/Week Comments No 0 (1 standard drink = 0.6 oz pur e alcohol) rarely drinks, < 1/month Comments Unknown Sex and Gender Information Value Date Recorded Sex Assigned at Female 02/07/2021 4:12 PM EDT Legal Sex Female 4:03 PM EDT Gender Identity Female 02/07/2021 4:12 PM EDT Sexual Orientation Straight 02/07/2021 4: 12 PM EDT documented as of this encounter Plan of Treatment Not on file documented as of this encounter Visit Diagnoses Not on filedocumented in this encounter Care Teams Motion Picture Camera Lens Technician Relationship Specialty Start Date End Date Guillermo Bass MD [address] [place] [id number] PCP - General Internal Medicine 01/10/17 10/15/21 Gulilermo Bass MD [address] [place], [place] [phone] PCP - General Internal Medicine 10/16/21 documented as of this encounter Additional Source Comments The information contained in this document represents components of the legal health record. It is not the complete legal health record.[facility]
--- OUTSIDE RECORDS SUMMARY | 2025-05-31 15:51 | XMS_ITS | Encounter Summary ---
Author Organization [facility] Address [address] [place] [address] [place] [phone] Phone Care Team Providers Care Evaluation Assistant Name Role Phone Guillermo Bass MD Primary Care Provider Guillermo Bass MD Primary Care Provider Encounter Details Date Type Department Care Team (Late st Contact Info) Description 02/06/2017 Procedure Pass [facility] PERIOPERATIVE DEPT [address] [place], [place] [id number] Social History Tobacco Use Types Packs/Day Years [...] on filedocumented in this encounter Care Teams Evaluation Assistant Relationship Specialty Start Date End Date Guillermo Bass MD [address] [place] [id number] PCP - General Internal Medicine 01/10/17 10/15/21 Guillermo Bass MD [address] [place], [place] [phone] PCP - General Internal Medicine 10/16/21 documented as of this encounter Additional Source Comments The information contained in this document represents components of the legal health record. It is not the complete legal health record.[facility]
--- OUTSIDE RECORDS SUMMARY | 2025-05-31 15:51 | XMS_ITS | Encounter Summary ---
Author Organization [facility] Address [address] [place] [phone] Phone Care Team Providers Care Facsimile Operator Name Role Phone Guillermo Bass MD Primary Care Provider Encounter Details Date Type Department Care Team (Late st Contact Info) Description 05/22/2022 Procedure [facility] - CT, Main [place] [address] [place] [address] Social History Tobacco Use Types Packs/Day Years Used Date Smoking Tobacco: Never Smokeless Tobacco: Never Alcohol Use Standard Drinks/Week Comments No 0 (1 standard drink = 0.6 oz pur e alcohol) rarely drinks, < 1/month Comments No Sex and Gender Information Value [...] on filedocumented in this encounter Care Teams Facsimile Operator Relationship Specialty Start Date End Date Guillermo Bass MD [address] [place] [id number] PCP - General Internal Medicine 10/16/21 documented as of this encounter Additional Source Comments The information contained in this document represents components of the legal health record. It is not the complete legal health record.[facility]
--- OUTSIDE RECORDS SUMMARY | 2025-05-31 15:51 | XMS_ITS | Clinical Summary ---
Author Organization [facility] Address [address] [place] [id number] Phone Care Team Providers Care Golf [employer] Weighter Name Role Phone Guillermo Bass MD Primary Care Provider Allergies Active Allergy Reactions Criticality Noted Date Comments Apple Swelling Medium 09/24/2022 Avocado 10/08/2022 Griseofulvin Rash Low 09/24/2022 Rash Iodine Itching,Rash Medium 12/27/2016 Other Hives,Itching,Swelli ng,Rash Medium 12/27/2016 Grispeg, apples, pears , peaches ,plums nectarines, cherries, alma rosa Shellfish Containing Products Itching,Swelling,GI Upset Medium 12/27/2016 Tree Nut Itching,Swelling Medium 09/24/2022 Medications montelukast (SINGULAIR) 10 mg tablet Take 10 mg by mouth daily. Active loratadine (CLARITIN) 10 mg tablet Take 10 mg by mouth daily. Active lisinopril (PRINIVIL,ZEST RIL) 20 MG tablet Take 20 mg by mouth daily. Active pantoprazole (PROTONIX) 40 MG tablet Take 40 mg by mouth 2 (two) times a day. Active metoprolol succinate (TOPROL-XL) 50 MG 24 hr tablet Take 50 mg by mouth daily. 0 Active SUMAtriptan (IMITREX) 50 MG tablet Take 50 mg by mouth once as needed. 0 Active ferrous sulfate 325 mg (65 mg nikolai iron) tablet Take 325 mg by mouth as directed. Q 2 days Active acetaminophen (TYLENOL) 500 MG tablet Take 2 tablets (1,000 mg total) by mouth every 8 (eight) hours. May wean to an as needed basis if pain well controlled. Do not take more than 3000mg acetaminophen per day (including in other prescribed or ahfu-wgj-loatrtd medications). 0 3 Active gabapentin (NEURONTIN) 600 MG tablet Take 1 tablet (600 mg total) by mouth 3 (three) times a day. 90 tablet 3 Active DULoxetine (CYMBALTA) 40 mg capsule Take 1 capsule (40 mg total) by mouth 2 (two) times a day. 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 04/12/2022 Anemia 06/28/2021 S/P lumbar spinal fusion 06/28/2021 Status post laminectomy with spinal fusion 02/21 Migraines Obesity Depression HTN (hypertension) Allergic rhinitis Resolved Problems Problem Noted Date Diagnosed Date Resolved Date Lumbar stenosis with neurogenic claudication 3 04/04/2023 SI (sacroiliac) joint dysfunction 03/07/2020 07/24/2021 Spinal stenosis of lumbar re gion with neurogenic claudication 07/04/2017 07/24/2021 DDD (degenerative disc disease), lumbar 12/27/2016 07/24/2021 Herniated nucleus pulposus, lumbar 12/27/2016 10/17/2021 Lumbar spinal stenosis 12/27/201607/24 Osteoarthritis of lumbar spine 12/27/2016 07/24/2021 Family History Medical History Relation Comments Hypertension Brother Emphysema Father Hyperlipidemia Father Hypertension Father Other Father pontine hemorrha ge Heart attack Mother Hyperlipidemia Mother Peripheral vascular disease Mother Relation Status Comments Brother Father Mother Alive Social History Tobacco Use Types Packs/Day Years Used Date Smoking Tobacco: Never Smokeless Tobacco: Never Tobacco Cessation:Counseling Given: Not Answered Alcohol Use Standard Drinks/Week Comments No 0 [...] Orientation Straight 02/07/2021 4: 12 PM EDT Last Filed Vital Signs Vital Sign Reading Time Taken Comments Blood Pressure 176/90 10/10/2022 7:32 AM EST Pulse 60 10/10/2022 7:32 AM EST Temperature 36.5 C (97.7 F) 10/10/2022 7:32 AM EST Respiratory Rate 18 10/10/2022 7:32 AM EST Oxygen Saturation 100% 10/10/2022 7:32 AM EST Inhaled Oxygen Concentration 21% 02/08/2017 7 :54 AM EDT Weight 95.7 kg (211 lb) 10/07/2022 5:00 PM EST Height 167.6 cm (5' 6 ) 10/07/2022 5:00 PM EST Body Mass Index 34.06 10/07/2022 5:00 PM EST Plan of Treatment Health Maintenance Due Date Last Done Comments BLOOD PRESSURE 1975 LIPID PANEL 1975 HEPATITIS C SCREENING 1993 HIV ONE-TIME SCREENING (18-65 YEARS) 1993 PAP SMEAR 1996 MAMMOGRAM 2015 COLOGUARD 2020 COLONOSCOPY 2020 COLORECTAL CANCER SCREENING 2020 FIT TEST 2020 FOBT 2020 SIGMOIDOSCOPY 2020 VIRTUAL COLONOSCOPY 2020 DEPRESSION SCREENING 02/08/2022 02/08/2021 CREATININE LEVEL 10/09/2023 10/09/2022, , 06/29/2021, Additional history exists POTASSIUM LEVEL 10/09/2023 10/09/2022, 09/10, 06/29/2021, Additional history exists INFLUENZA VACCINE (#1) 2025 , 06/18/2021, 07/13/2020, Additional history exists COVID-19 VACCINE (2024- season) 2025 08/18/2021, 11/21/2020, 10/24/2020 SCREENING FOR DIABETES 10/09/2025 10/09/2022 Adult Td,Tdap Booster 09/13/2032 09/13/2022, 010 SMOKING STATUS SCREENING (Once After 26 Yrs) Completed 10/07/2022 HEPATITIS A VACCINES Aged Out No long er eligible based on patient's age to complete this topic HIB VACCINES Aged Out No longer eligi ble based on patient's age to complete this topic MENINGOCOCCAL VACCINES (ACWY) Aged Out No longer eligible based on patient's age to complete this topic MENINGOCOCCAL VACCINES (B) Aged Out N o longer eligible based on patient's age to complete this topic PNEUMOCOCCAL VACCINES (0-49 years) Aged Out No longer eligible based on patient's age to complete this topic Medical Devices Implanted Type Area Land Acquisition Specialist Device Identifier Shelf Expiration Date Model / Serial / Lot Graft Bone 1 8mm Readi Cancellous Crushed Freeze Dried - [id number] Implanted:Qty: 1 on 10/07/2022 by Arsen Christy MD at [facility] [employer]UE N/A: Spine Lumbar [facility] 03/26/2027 [id number]/ [id number] Mirena Uterus Cage - Lumbar Plif Narrow 6 Deg W8 L24 H08 (Titanium) - [id number] Implanted:Qty: 2 on 02/06/2017 by Arsen Christy MD at [facility] N/A: Spine Lumbar [employer] 07/09/2024 DAVINA-P6 24 08-S / / [id number] Screw Polyaxial 7 L40 Pk/2ea - [id number] Implanted:Qty: 2 on 02/06/2017 by Arsen Christy MD at [facility] N/A: Spine Lumbar [employer] 09/13/2021 ELL-PS 07 40-S / / [id number] Set Screw - [id number] Implanted:Qty: 2 on 02/06/2017 by Arsen Christy MD at [facility] N/A: Spine Lumbar [employer] 09/13/2021 ELL-SC 00 00-S / / [id number] Greg Pre -Bent 5.4x80 Pk/2ea - [id number] Implanted:Qty: 2 on 02/06/2017 by Arsen Christy MD at [facility] Spine Lumbar [employer] 07/16/2021 [id number] 0S / / [id number] Connector Cross Multiaxial 43 - [id number] Implanted:Qty: 1 on 02/06/2017 by Arsen Christy MD at [facility] Spine Lumbar [employer] 07/18/2021 ELL-CC MU 43-S / / [id number] Substitute Bone 5ml Graft Dbm Calcium Phosphate Putty Kit Equivabone - [id number] Implanted:Qty: 1 on 02/06/2017 by Arsen Christy MD at [facility] N/A: Spine Lumbar [employer] 05/08/2019 [id number] / / [id number] Substitute Bone 5ml Graft Dbm Calcium Phosphate Putty Kit Equivabone - [id number] Implanted:Qty: 1 on 02/06/2017 by Arsen Christy MD at [facility] N/A: Spine Lumbar [employer] 04/07/2019 [id number] / / [id number] Cage Titanium 24/11mm - [id number] Implanted:Qty: 2 on 02/06/2017 by Arsen Christy MD at [facility] N/A: Spine Lumbar [employer] 06/26/2024 24 11-S / / [id number] Cage - Lumbar Plif Narrow 6 Deg W8 L24 H08 (Titanium) - [id number] Implanted:Qty: 2 on 02/06/2017 by Arsen Christy MD at [facility] N/A: Spine Lumbar [employer] 04/04/2024 24 08-S / / [id number] Screw Polyaxial 7 L40 Pk/2ea - [id number] Implanted:Qty: 2 on 02/06/2017 by Arsen Christy MD at [facility] N/A: Spine Lumbar [employer] 10/16/2021 ELL-PS 07 40-S / / [id number] Set Screw - [id number] Implanted:Qty: 2 on 02/06/2017 by Arsen Christy MD at [facility] Spine Lumbar [employer] 10/10/2021 ELL-SC 00 00-S / / [id number] Screw Polyaxial 6 L40 Pk/2ea - [id number] Implanted:Qty: 2 on 02/06/2017 by Arsen Christy MD at [facility] N/A: Spine Lumbar [employer] 02/20/2021 ELL-PS 06 40-S / / [id number] Nut For Screw Spine Ti Carlos Packed With Screw - [id number] Implanted:Qty: 2 on 02/06/2017 by Arsen Christy MD at [facility] N/A: Spine Lumbar [employer] 03/22/2021 ELL-SC 00 00-S / / [id number] Composite Modable Bioactive Macroform Novabone 5cc Packable - [id number] Implanted:Qty: 1 on 06/28/2021 by Arsen Christy MD at [facility] N/A: Spine Lumbar [employer] 11/07/2023 [id number] / / [id number] Description:The implant type , laterality (when applicable), size, and expiration date have been visually and verbally confirmed by the Surgeon, Circulating RN and Scrub Personnel. Spine Cage 8deg [id number] 3d Printed Ti Life Porous Trabec Lateral - [id number] Implanted:Qty: 1 on 06/28/2021 by Arsen Christy MD at [facility] N/A: Spine Lumbar [employer] 06/29/2026 [id number]-S8 40 10-S / [id number] Description:The implant type , laterality (when applicable), size, and expiration date have been visually and verbally confirmed by the Surgeon, Circulating RN and Scrub Personnel. Screw Spine 6x40mm Carlos Polyaxial Pk/2ea - [id number] Implanted:Qty: 2 on 06/28/2021 by Arsen Christy MD at [facility] N/A: Spine Lumbar [employer] 12/12/2025 ELL-PS 06 40-S / 84 Description:The implant type , laterality (when applicable), size, and expiration date have been visually and verbally confirmed by the Surgeon, Circulating RN and Scrub Personnel. Screw Bone Spine Nut For Ti Carlos - [id number] Implanted:Qty: 2 on 06/28/2021 by Arsen Christy MD at [facility] N/A: Spine Lumbar [employer] 12/12/2025 ELL-SC 00 00-S / 85 Description:The implant type , laterality (when applicable), size, and expiration date have been visually and verbally confirmed by the Surgeon, Circulating RN and Scrub Personnel. Spine Greg 5.2n281ac Hexagonal Cochr Straight Pk/2ea - [id number] Implanted:Qty: 2 on 06/28/2021 by Arsen Christy MD at [facility] N/A: Spine Lumbar [employer] 08/24/2024 ELL-RD 21 00-S / / 93 Description:The implant type , laterality (when applicable), size, and expiration date have been visually and verbally confirmed by the Surgeon, Circulating RN and Scrub Personnel. Screw Spine 5x35mm Carlos Polyaxial Pk/2ea - [id number] Implanted:Qty: 2 on 06/28/2021 by Arsen Christy MD at [facility] N/A: Spine Lumbar [employer] 02/23/2024 ELL-PS 05 35-S / / [id number] Description:The implant type , laterality (when applicable), size, and expiration date have been visually and verbally confirmed by the Surgeon, Circulating RN and Scrub Personnel. Screw Bone Spine Nut For Ti Carlos - [id number] Implanted:Qty: 2 on 06/28/2021 by Arsen Christy MD at [facility] N/A: Spine Lumbar [employer] 02/23/2024 [facility] 00 00-S / / 5 Description:The implant type , laterality (when applicable), size, and expiration date have been visually and verbally confirmed by the Surgeon, Circulating RN and Scrub Personnel. Screw Bone Spine Nut For Ti Carlos - [id number] Implanted:Qty: 4 on 06/28/2021 by Arsen Christy MD at [facility] N/A: Spine Lumbar [employer] 02/16/2025 [facility] 00 00-S / Description:The implant type , laterality (when applicable), size, and expiration date have been visually and verbally confirmed by the Surgeon, Circulating RN and Scrub Personnel. Screw Spine 6x40mm Carlos Polyaxial Pk/2ea - [id number] Implanted:Qty: 2 on 10/07/2022 by Arsen Christy MD at [facility] N/A: Spine Lumbar [employer] [id number] 01/16/2025 [facility]- 06 40-S / 4 Description:The implant type , laterality (when applicable), size, and expiration date have been visually and verbally confirmed by the Surgeon, Circulating RN and Scrub Personnel. Screw Bone Spine Nut For Ti Carlos - [id number] Implanted:Qty: 2 on 10/07/2022 by Arsen Christy MD at [facility] N/A: Spine Lumbar [employer] [id number] 01/16/2025 [facility] 00-S / 5 Description:The implant type , laterality (when applicable), size, and expiration date have been visually and verbally confirmed by the Surgeon, Circulating RN and Scrub Personnel. Screw Spine 5x40mm Carlos Polyaxial Pk/2ea - [id number] Implanted:Qty: 2 on 10/07/2022 by Arsen Christy MD at [facility] N/A: Spine Lumbar [employer] [id number] 10/04/2024 ELL-PS 40-S Description:The implant type , laterality (when applicable), size, and expiration date have been visually and verbally confirmed by the Surgeon, Circulating RN and Scrub Personnel. Screw Bone Spine Nut For Ti Carlos - [id number] Implanted:Qty: 2 on 10/07/2022 by Arsen Christy MD at [facility] N/A: Spine Lumbar [employer] [id number] 10/04/2024 ELL-SC 00-S Description:The implant type , laterality (when applicable), size, and expiration date have been visually and verbally confirmed by the Surgeon, Circulating RN and Scrub Personnel. Screw Spine 6x40mm Carlos Polyaxial Pk/2ea - [id number] Implanted:Qty: 2 on 10/07/2022 by Arsen Christy MD at [facility] N/A: Spine Lumbar [employer] [id number] 06/11/2026 ELL-PS 40-S Description:The implant type , laterality (when applicable), size, and expiration date have been visually and verbally confirmed by the Surgeon, Circulating RN and Scrub Personnel. Screw Bone Spine Nut For Ti Carlos - [id number] Implanted:Qty: 2 on 10/07/2022 by Arsen Christy MD at [facility] N/A: Spine Lumbar [employer] [id number] 06/11/2026 ELL-SC 00-S Description:The implant type , laterality (when applicable), size, and expiration date have been visually and verbally confirmed by the Surgeon, Circulating RN and Scrub Personnel. Screw Spine 6x40mm Carlos Polyaxial Pk/2ea - [id number] Implanted:Qty: 2 on 10/07/2022 by Arsen Christy MD at [facility] N/A: Spine Lumbar [employer] [id number] 02/04/2023 ELL-PS 06 40-S / / -2559 37 2 Description:The implant type , laterality (when applicable), size, and expiration date have been visually and verbally confirmed by the Surgeon, Circulating RN and Scrub Personnel. Screw Bone Spine Nut For Ti Carlos - [id number] Implanted:Qty: 2 on 10/07/2022 by Arsen Christy MD at [facility] N/A: Spine Lumbar [employer] [id number] 02/04/2023 [facility] 00 00-S / 2560 37 2 Description:The implant type , laterality (when applicable), size, and expiration date have been visually and verbally confirmed by the Surgeon, Circulating RN and Scrub Personnel. Spine Connector Parallel - [id number] Implanted:Qty: 2 on 10/07/2022 by Arsen Christy MD at [facility] N/A: Spine Lumbar [employer] [id number] 09/21/2023 [facility] [place] 00-S / 4056 Description:The implant type , laterality (when applicable), size, and expiration date have been visually and verbally confirmed by the Surgeon, Circulating RN and Scrub Personnel. Screw Bone Spine Nut For Ti Carlos - [id number] Implanted:Qty: 4 on 10/07/2022 by Arsen Christy MD at [facility] N/A: Spine Lumbar [employer] [id number] 09/21/2023 [facility] 00 00-S / 4057 Description:The implant type , laterality (when applicable), size, and expiration date have been visually and verbally confirmed by the Surgeon, Circulating RN and Scrub Personnel. Spine Greg 200mm Titanium Straight Pk/2ea - [id number] Implanted:Qty: 2 on 10/07/2022 by Arsen Christy MD at [facility] N/A: Spine Lumbar [employer] [id number] 06/25/2025 ELL-RD 22 00-S / / [id number] Description:The implant type , laterality (when applicable), size, and expiration date have been visually and verbally confirmed by the Surgeon, Circulating RN and Scrub Personnel. Spine Connector 15mm Offset - [id number] Implanted:Qty: 1 on 10/07/2022 by Arsen Christy MD at [facility] N/A: Spine Lumbar [employer] [id number] 07/27/2025 [facility] 15-S Description:The implant type , laterality (when applicable), size, and expiration date have been visually and verbally confirmed by the Surgeon, Circulating RN and Scrub Personnel. Screw Bone Spine Nut For Ti Carlos - [id number] Implanted:Qty: 1 on 10/07/2022 by Arsen Christy MD at [facility] N/A: Spine Lumbar [employer] [id number] 07/27/2025 [facility] 00-S Description:The implant type , laterality (when applicable), size, and expiration date have been visually and verbally confirmed by the Surgeon, Circulating RN and Scrub Personnel. Open Iliac Connector L20 Implanted:Qty: 1 on 10/07/2022 by Arsen Christy MD at [facility] N/A: Spine Lumbar [employer] [id number] 11/30/2025 [facility] 20-S Description:The implant type , laterality (when applicable), size, and expiration date have been visually and verbally confirmed by the Surgeon, Circulating RN and Scrub Personnel. Screw Bone Spine Nut For Ti Carlos - [id number] Implanted:Qty: 1 on 10/07/2022 by Arsen Christy MD at [facility] N/A: Spine Lumbar [employer] [id number] 11/30/2025 [facility] 00-S Description:The implant type , laterality (when applicable), size, and expiration date have been visually and verbally confirmed by the Surgeon, Circulating RN and Scrub Personnel. Spine Connector 20mm Iliac - [id number] Implanted:Qty: 1 on 10/07/2022 by Arsen Christy MD at [facility] N/A: Spine Lumbar [employer] [id number] 07/27/2025 [facility] 00 20-S / / 73 Description:The implant type , laterality (when applicable), size, and expiration date have been visually and verbally confirmed by the Surgeon, Circulating RN and Scrub Personnel. Screw Bone Spine Nut For Ti Carlos - [id number] Implanted:Qty: 1 on 10/07/2022 by Arsen Christy MD at [facility] N/A: Spine Lumbar [employer] [facility] [id number] 07/27/2025 [facility] 00 00-S / / Description:The implant type , laterality (when applicable), size, and expiration date have been visually and verbally confirmed by the Surgeon, Circulating RN and Scrub Personnel. Spine Interbody Sm Fusion System Optimesh - [id number] Implanted:Qty: 1 on 10/07/2022 by Arsen Christy MD at [facility] N/A: Spine Lumbar [employer] [id number] 02/06/2027 300-2628 / / [id number] Description:The implant type , laterality (when applicable), size, and expiration date have been visually and verbally confirmed by the Surgeon, Circulating RN and Scrub Personnel. Spine Interbody Sm Fusion System Optimesh - [id number] Implanted:Qty: 1 on 10/07/2022 by Arsen Christy MD at [facility] N/A: Spine Lumbar [employer] 02/06/2027 300-2628 / / [id number] Description:The implant type , laterality (when applicable), size, and expiration date have been visually and verbally confirmed by the Surgeon, Circulating RN and Scrub Personnel. Tip Graft Bone 3/4 Fill Diverted Tube G2 Implantable - [id number] Implanted:Qty: 1 on 10/07/2022 by Arsen Christy MD at [facility] N/A: Spine Lumbar [employer] 05/27/2024 [id number] / [id number] / Tube Spine Aft Straight - [id number] Implanted:Qty: 1 on 10/07/2022 by Arsen Christy MD at [facility] N/A: Spine Lumbar [employer] 03/29/2023 [id number] / [id number] / Tip Graft Bone 3/4 Fill Diverted Tube G2 Implantable - [id number] Implanted:Qty: 1 on 10/07/2022 by Arsen Christy MD at [facility] N/A: Spine Lumbar [employer] 05/27/2024 [id number] / / [id number] Tip Graft Bone 3/4 Fill Diverted Tube G2 Implantable - [id number] Implanted:Qty: 1 on 10/07/2022 by Arsen Christy MD at [facility] N/A: Spine Lumbar [employer] 05/27/2024 [id number] / [id number] / Procedures Procedure Name Priority Date/Time Associated Diagnosis Comments BASIC METABOLIC PANEL Routine 10/09/2022 6:08 AM EST from Last 3 Months or Most Recently Relevant to Health Maintenance Results * (ABNORMAL) Basic metabolic panel (10/09/2022 6:08 AM EST) SODIUM 141 136 - 145 mmol/L [facility] CHLORIDE 104 95 - 106 mmol/L [facility] POTASSIUM 3.7 3.5 - 5.2 mmol/L [facility] CO2 27 20 - 31 mmol/L [facility] BUN 13 9 - 23 mg/dL [facility] CREATININE 0.89 0.50 - 1.30 mg/dL [facility] GLUCOSE 110(H) 74 - 106 mg/dL [facility] CALCIUM 8.6(L) 8.7 - 10.4 mg/dL [facility] EGFR 80 >60 mL/min/1.7 3m2 [facility] Comment:Estimated glomerular filtration rate calculated using the CKD-EPI refit equation. ANION GAP 10 3 - 17 mmol/L [facility] Blood 10/09/2022 6:08 AM EST 10/09/2022 7:06 AM EST us Lea Nielsen PA-C LAB BLOOD ORDERABLES Fin al Result [facility] [address] [place] [address] from Last 3 Months or Most Recently Relevant to Health Maintenance Insurance [facility] PART A & B [place] [facility] MEDICARE [facility] A & B [facility] & [facility] & [facility] Member Subscriber Plan / Payer (Ef fective 2022-Present) Name:Yina Patterson Relation to Subscriber:Self Name:Yina Patterson Payer ID:[id number] Group ID:Not on file Type:Medicaid Address: [id number] ACO MEDICARE PART A & [place] [address] INSURANCE INSURANCE INSURANCE Advance Directives For more information, please contact: [phone] (9AM - 5PM Jodie/[facility], Friday-Friday) Documents on File Type Date Recorded Patient 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 anation MOLST 06/28/2021 7:05 AM Healthcare Proxy 06/28/2021 7:05 AM * Full Code (Latest Code Status on File) Date Activated Date Inactivated Comments 10/07/2022 4:11 PM Question Answer Comments Code Status Confirmed With: Patient * Full Code (Presumed) Date Activated Date Inactivated Comments 02/06/2017 4:30 PM 02/08/2017 3:41 PM Care Teams [employer] We[employer] Relationship Specialty Start Date End Date Guillermo Bass MD [address] [place] [address] PCP - General Internal Medicine 10/16/21 Additional Source Comments The information contained in this document represents components of the legal health record. It is not the complete legal health record.[facility]
--- OUTSIDE RECORDS SUMMARY | 2025-05-31 15:51 | XMS_ITS ---
Author Name [facility] Organization Unknown Encounters Encounter Type Encounter Reason Primary Diagnosis Location Date Emergency Dorsalgia, unspecified Dorsalgia, unspecified [facility] 07/18/2023 Emergency Dorsalgia, unspecified Dorsalgia, unspecified [facility] 03/06/2023 Care Team Organization Name Specialty Phone Email Start Date End Da te [facility] 09/28/2023 [facility] 03/07/2023 01/12/2025 [facility] 03/06/2023
--- OUTSIDE RECORDS SUMMARY | 2025-05-31 15:51 | XMS_ITS | Encounter Summary ---
Author Organization [facility] Address [address] [facility] [address] [place] [phone] Phone Care Team Providers Care Sampler Tester Name Role Phone Guillermo Bass MD Primary Care Provider Guillermo Bass MD Primary Care Provider Encounter Details Date Type Department Care Team (Late st Contact Info) Description 04/18/2021 Ancillary Orders [facility],Outside Imaging [address], [place] [id number] System, Provider Not In, PhD [address] [address] Social History Tobacco Use Types Packs/Day Years [...] on file documented as of this encounter Results * MRI Spine (Bone) Outside (No Interpretation) (11/25/2016 12:00 AM EDT) Narrative SYSTEMGENERATED, DOCUMENTATION - 04/18/2021 7:52 AM EDT This study is for PACS storage only and not for interpretation. us Provider Not In System PhD IMG OUTSIDE IMAGING W /OUT INTERPRETATION Final Result documented in this encounter Visit Diagnoses Not on filedocumented in this encounter Care Teams Sampler Tester Relationship Specialty Start Date End Date Guillermo Bass MD [address] [place] [phone] PCP - General Internal Medicine 01/10/17 10/15/21 Guillermo Bass MD [address] [place] [phone] PCP - General Internal Medicine 10/16/21 documented as of this encounter Additional Source Comments The information contained in this document represents components of the legal health record. It is not the complete legal health record.[facility]
--- OUTSIDE RECORDS SUMMARY | 2025-05-31 15:51 | XMS_ITS | Encounter Summary ---
Author Organization [facility] Address [address] [place] [address] [place] [address] Phone Care Team Providers Care Stripper And Taper Name Role Phone Guillermo Bass MD Primary Care Provider Encounter Details Date Type Department Care Team (Late st Contact Info) Description 01/02/2022 Procedure Pass [facility], [address] [address] Social History Tobacco Use Types Packs/Day Years [...] on filedocumented in this encounter Care Teams Stripper And Taper Relationship Specialty Start Date End Date Guillermo Bass MD [address] [place] [phone] PCP - General Internal Medicine 10/16/21 documented as of this encounter Additional Source Comments The information contained in this document represents components of the legal health record. It is not the complete legal health record.[facility]
--- OUTSIDE RECORDS SUMMARY | 2025-05-31 15:51 | XMS_ITS | Continuity of Care Document ---
Author Organization [facility] Address [address] [place] [address] Care Team Providers Care Deputy Juvenile Officer Name Role Phone Unavailable Primary Care Provider Unavailabl e Encounters Date Type Department Care Team Description 01/08/2021 3:00 PM EDT Radiology [facility] Xray [address] [address] Chronic low back pain, unspecified back pain laterality, unspecified whether sciatica present 01/08/2021 3:05 PM EDT Consult (Initial) [facility] Orthopedic Surgery [address] [phone] Calvin Ceballos MD Sacroiliitis (Primary Dx); DDD (degenerative disc disease), lumbar; Low back pain of over 3 months duration 01/02/2021 Orders Only [facility] Orthopedic Surgery [address] [phone] Calvin Ceballos MD Allergies Active Allergy Reactions Criticality Noted Date Comments Penicillin G 01/08/2021 Iodine 01/08/2021 Medications buPROPion HCl ER, SR, (WELLBUTRIN SR) 100 MG 12 hr tablet Take 100 mg by mouth Active Gabapentin (NEURONTIN) 300 MG capsule Take 600 mg by mouth 02/18/2020 Active Lisinopril (PRINIVIL,ZESTR IL) 20 MG tablet Take 20 mg by mouth Active Metoprolol Succinate (TOPROL-XL) 50 MG 24 hr tablet Take 50 mg by mouth 1 (one) time each day 10/16/2020 Active SUMAtriptan Succinate (IMITREX) 50 MG tablet TAKE 1 TABLET BY MOUTH ONCE A DAY NEEDED FOR MIGRAINE, MAY REPEAT IN 2 HOURS IF NEEDED 12/09/2020 Active traMADol HCl (ULTRAM) 50 MG tablet Take 50 mg by mouth 4 (four) times a day if needed 02/26/2020 Active Venlafaxine HCl (EFFEXOR-XR) 150 MG 24 hr capsule Take 150 mg by mouth 1 (one) time each day in the morning 10/05/2020 Active loratadine (CLARITIN) 10 MG tablet Take 10 mg by mouth Active Immunizations Immunization Administration Dates Next Due COVID-19, mRNA (Moderna Pre Fall 2022) Monovalent, 100 mcg/0.5 ml or 50 mcg/0.25 ml dose 08/18/2021,11/21/2020,10/24/2020 Influenza,injectable,quad,Prsrv Fr 07/13/2020, Influenza,seasonal,trivalent ,preservative (FLUZONE MDV) 06/18/2021 Social History Smoking Status as of 05/31/2025 Tobacco Use Types Packs/Day Years Used Date Smoking Tobacco: Never Assessed Intimate Partner Violence Answer Date R ecorded Fear of Current or Ex-Partner Not on file Emotionally Abused Not on file 05/01/2023 Physically Abused Not on file 05/01/2023 Sexually Abused Not on file 05/01/2023 Feel Safe at Home Not on file 05/01/2023 Sex and Gender Information Value Date Recorded Sex Assigned at Not on file Legal Sex Female 1:08 PM EDT Gender Identity Not on file Sexual Orientation Not on file Plan of Treatment Not on file Procedures * Due to [place] [employer] law, this organization might not be sharing negative HIV tests. Procedure Name Priority Date/Time Associated Diagnosis Comments XRAY SPINE, LUMBOSACRAL; 2 OR 3 VIEWS Routine 01/08/2021 2:47 PM EDT Chronic low back pain, unspecified back pain laterality, unspecified whether sciatica present Results * Due to [place] [employer] law, this organization might not be sharing negative HIV tests. * XRAY SPINE, LUMBOSACRAL; 2 OR 3 VIEWS FC (01/08/2021 2:47 PM EDT) Anatomical Region Laterality Modality Spine Radiographic Jes ging 01/09/2021 5:51 AM EDT Narrative 01/09/2021 5:51 AM EDT CONTRAST: EXAM: LUMBAR SPINE SERIES: COMPARISON: None TECHNIQUE: AP, lateral standing views. FINDINGS: Previous L4 and L5 laminectomies, pedicle screw and interbody fusion hardware in place from the L4 level to the S1 level. Vertebral body heights are normal. There is mild left convexity curvature of the lumbar spine, measures approximately 9 degrees between L1 and L4 levels. Lordotic curvature is normal and alignment otherwise unremarkable. There is moderate degenerative narrowing of the L3-4 disc space also. No acute abnormality is identified. Upper abdominal surgical clips and suture line also noted. IMPRESSION: Previous operative changes with mild left convexity curvature of the lumbar spine. Hardware unremarkable. Procedure Note Baldemar Ahumada MD - 01/09/2021 CONTRAST: EXAM: LUMBAR SPINE SERIES: COMPARISON: None TECHNIQUE: AP, lateral standing views. FINDINGS: Previous L4 and L5 laminectomies, pedicle screw and interbody fusionhardware in place from the L4 level to the S1 level. Vertebral body heights are normal. There is mild left convexity curvatureof the lumbar spine, measures approximately 9 degrees between L1 and N1agxcrh. Lordotic curvature is normal and alignment otherwise unremarkable. There is moderate degenerative narrowing of the L3-4 disc space also. No acute abnormality is identified. Upper abdominal surgical clips and suture line also noted. IMPRESSION: Previous operative changes with mild left convexity curvature of thelumbar spine. Hardware unremarkable. Calvin Ceballos MD IMG XRAY NO CONTRAST ORDERABLES Final Result Visit Diagnoses Diagnosis Start Date Chronic low back pain, unspecified back pain laterality, unspecified whether sciatica present 01/02/2021 Chronic low back pain, unspecified back pain laterality, unspecified whether sciatica present 01/08/2021 Sacroiliitis Sacroiliitis, not elsewhere classified 01/08/2021 DDD (degenerative disc disease), lumbar Degeneration of lumbar or lumbosacral intervertebral disc 01/08/2021 Low back pain of over 3 months duration 01/08/2021
--- OUTSIDE RECORDS SUMMARY | 2025-05-31 15:51 | XMS_ITS | Encounter Summary ---
Author Organization [facility] Address [address] [place] [address] [place] [phone] Phone Care Team Providers Care Entry Level Software Developer Name Role Phone Guillermo Bass MD Primary Care Provider Guillermo Bass MD Primary Care Provider Encounter Details Date Type Department Care Team (Late st Contact Info) Description 03/26/2021 Procedure Pass [facility], [address] [address] Social History Tobacco Use Types Packs/Day Years [...] on filedocumented in this encounter Care Teams Entry Level Software Developer Relationship Specialty Start Date End Date Guillremo Bass MD [address] [place] [phone] PCP - General Internal Medicine 01/10/17 10/15/21 Guillermo Bass MD [address] [place] [phone] PCP - General Internal Medicine 10/16/21 documented as of this encounter Additional Source Comments The information contained in this document represents components of the legal health record. It is not the complete legal health record.[facility]
--- OUTSIDE RECORDS SUMMARY | 2025-05-31 15:51 | XMS_ITS | Clinical Summary ---
Author Organization [facility] Address [address] [place] [address] Care Team Providers Care Truck And Transport Mechanic Name Role Phone Pcp, No Primary Care Provider Unavailabl e Allergies Active Allergy Reactions Criticality Noted Date Comments Shellfish Allergy GI Intolerance/Nausea/Vomiting,Itching ,Swelling Medium 12/27/2016 Medications amitriptyline (ELAVIL) 25 MG tablet TAKE 1 TABLET BY MOUTH EVERYDAY AT BEDTIME 0 Active buPROPion (WELLBUTRIN SR) 100 MG 12 hr tablet Take 100 mg by mouth. Active butalbital-acet aminophen-caffe ine-codeine (FioriCET WITH CODEINE) 51-577-73-30 MG capsule Take 1 capsule by mouth every 4 (four) hours as needed. Active cyanocobalamin (VITAMIN B-12) 1000 MCG tablet Take 100 mcg by mouth. Active gabapentin (NEURONTIN) 300 MG capsule Take 600 mg by mouth 3 (three) times a day. 0 Active lisinopril (PRINIVIL,ZeSTR IL) 10 MG tablet Take 10 mg by mouth daily. 0 Active levonorgestrel (MIRENA) 20 mcg/24hr IUD 1 Device by Intrauterine route. Active metoPROLOL SUCCINATE (TOPROL-XL) 50 MG 24 hr tablet Take 50 mg by mouth. 0 Active mirtazapine (REMERON) 15 MG tablet TAKE 1 TABLET BY MOUTH EVERYDAY AT BEDTIME 9 Active PANTOprazole (PROTONIX) 40 MG EC tablet Take 40 mg by mouth. Active traMADol (ULTRAM) 50 MG tablet Take 50 mg by mouth 4 (four) times a day as needed. For pain 0 Active traZODone (DESYREL) 50 MG tablet Take 50-100 mg by mouth nightly as needed. 0 Active venlafaxine (EFFEXOR-XR) 150 MG 24 hr capsule Take 1 capsule by mouth. 9 Active PANTOprazole (PROTONIX) 40 MG EC tabletIndicatio ns:PUD (peptic ulcer disease) Take 1 tablet (40 mg total) by mouth 2 (two) times a day in the morning and the early afternoon. 60 tablet 0 Active Active Problems No known active problems Social History Tobacco Use Types Packs/Day Years Used Date Smoking Tobacco: Never Smokeless Tobacco: Never Comments Unknown Sex and Gender Information Value Date Recorded Sex Assigned at Not on file Legal Sex Female 4:18 PM EDT Gender Identity Not on file Sexual Orientation Not on file Last Filed Vital Signs Vital Sign Reading Time Taken Comments Blood Pressure 134/89 03/15/2020 4:23 PM EDT Pulse 74 03/15/2020 4:23 PM EDT Temperature 36.3 C (97.3 F) 03/15/2020 4:23 PM EDT Respiratory Rate - - Oxygen Saturation 98% 03/15/2020 4:23 PM EDT Inhaled Oxygen Concentration - - Weight 109 kg (240 lb) 03/15/2020 4:23 PM EDT Height 167.6 cm (5' 6 ) 03/15/2020 4:23 PM EDT Body Mass Index 38.74 03/15/2020 4:23 PM EDT Plan of Treatment Health Maintenance Due Date Last Done Comments Hepatitis C Virus Screening 1975 HIV Screening 1988 DTaP/Tdap/Td Vaccines (1 - Tdap) 1994 Hepatitis B Vaccines (1 of 3 - 19+ 3-dose series) 1994 COVID-19 Vaccine (2023-2 5 season) 2025 Pneumococcal Vaccine: Pediat katie (0-5 Years) and At-Risk Patients (6 to 49 Years) Aged Out No longer eligible b ased on patient's age to complete this topic Care Teams Truck And Transport Mechanic Relationship Specialty Start Date End Date Pcp, No PCP - General General Medicine 09/08/19
--- OUTSIDE RECORDS SUMMARY | 2025-05-31 15:51 | XMS_ITS | Encounter Summary ---
Author Organization [facility] Address [address] [facility] [address] [place] [address] Phone Care Team Providers Care Embedded Hardware Engineer Name Role Phone Guillermo Bass MD Primary Care Provider Guillermo Bass MD Primary Care Provider Encounter Details Date Type Department Care Team (Late st Contact Info) Description 06/28/2021 Procedure Pass [facility] PERIOPERATIVE DEPT [address] [place] [address] Social History Tobacco Use Types Packs/Day Years [...] Date of Assessment Author No Risk Indicated 06/28/2021 6:00 PM EDT Elisabet Bahena RN * [place] Suicide Severity Rating Scale (Screener/Recent Self-Report) Question Answer Date of Assessment Author 1. Wish to be (Past 1 Month) No 021 6:00 PM EDT Elisabet Bahena RN 2. Non-Specific Active Suici susie Thoughts (Past 1 Month) No 06/28/2021 6:00 PM EDT Kayleen Bahena RN 6. Suicidal Behavior (Lifetime) No 6:00 PM EDT Elisabet Bahena RN documented as of this encounter Plan of Treatment Not on file documented as of this encounter Visit Diagnoses Not on filedocumented in this encounter Care Teams Embedded Hardware Engineer Relationship Specialty Start Date End Date Guillermo Bass MD [address] [place] [phone] PCP - General Internal Medicine 01/10/17 10/15/21 Guillermo Bass MD [address] [place] [phone] PCP - General Internal Medicine 10/16/21 documented as of this encounter Additional Source Comments The information contained in this document represents components of the legal health record. It is not the complete legal health record.[facility]
--- OUTSIDE RECORDS SUMMARY | 2025-05-31 15:51 | XMS_ITS | Encounter Summary ---
Author Organization [facility] Address [address] [facility] [address] [place] [address] Phone Care Team Providers Care Women'S Ministry Director Name Role Phone Guillermo Bass MD Primary Care Provider Guillermo Bass MD Primary Care Provider Encounter Details Date Type Department Care Team (Late st Contact Info) Description 12/12/2017 Procedure Pass [facility] General Imaging [address] [place] [address] Social History Tobacco Use Types Packs/Day Years Used Date Smoking Tobacco: Never Smokeless Tobacco: Never Alcohol Use Standard Drinks/Week Comments No 0 (1 standard drink = 0.6 oz pur e alcohol) Comments No Sex and Gender Information Value [...] on filedocumented in this encounter Care Teams Women'S Ministry Director Relationship Specialty Start Date End Date Guillermo Bass MD [address] [place] [phone] PCP - General Internal Medicine 01/10/17 10/15/21 Guillermo Bass MD [address] [place] [address] PCP - General Internal Medicine 10/16/21 documented as of this encounter Additional Source Comments The information contained in this document represents components of the legal health record. It is not the complete legal health record.[facility]
--- OUTSIDE RECORDS SUMMARY | 2025-05-31 15:51 | XMS_ITS | Encounter Summary ---
Author Organization [facility] Address [address] [place] [address] Phone Care Team Providers Care Open Shank Coverer Name Role Phone Guillermo Bass MD Primary Care Provider Encounter Details Date Type Department Care Team (Late st Contact Info) Description 12/22/[address] Arsen Christy [address] [facility], [address] [place] [address], [address] [place] [address] Arsen Christy MD [address], [address] [place] [address] [email or web address] S/P lumbar spinal fusion (Primary Dx) Social History Tobacco Use Types Packs/Day Years [...] documented as of this encounter Results * XR LUMBAR SPINE 1 VIEW (12/22/2024 11:25 AM EDT) Anatomical Region Laterality Modality L-spine Computed Radiogr aphy 12/22/2024 2:22 PM EDT Impressions 12/22/2024 2:34 PM EDT Instrumented thoracolumbar sacral fusion. Narrative 12/22/2024 2:34 PM EDT XR LUMBAR SPINE 1 VIEW Referring clinician's provided indication for this examination in Epic: S/P Fusion COMPARISON: FINDINGS: Scoliosis series: AP lateral views of the entire spine were electronically stitched to create scoliosis series demonstrating thoracolumbar sacral fusion including pedicle screws and numerous paraspinal rods from lower thoracic spine 2 sacrum, including interbody spacer placements at 3 levels. At the most cranial level, the spacer projects anterior to the vertebral bodies. Other hardware locations are difficult to determine. Multilevel degenerative changes are present without compression fracture. The sacrum is partially obscured by overlying stool and bowel gas. Thoracolumbar curvature. Dixie kyphosis at junction of fused and nonfused spine. Lumbar spine: Lateral views again show instrumented fusion hardware. No compression fracture. Transitional lumbosacral junction is possible. Numerous surgical clips overlie the abdomen. Procedure Note Moses Serna MD - 12/22/2024 XR LUMBAR SPINE 1 VIEW Referring clinician's provided indication for this examination in Epic:S/P Fusion COMPARISON: FINDINGS: Scoliosis series: AP lateral views of the entire spine were electronicallystitched to create scoliosis series demonstrating thoracolumbar sacralfusion including pedicle screws and numerous paraspinal rods from lowerthoracic spine 2 sacrum, including interbody spacer placements at 3levels. At the most cranial level, the spacer projects anterior to thevertebral bodies. Other hardware locations are difficult to determine.Multilevel degenerative changes are present without compression fracture.The sacrum is partially obscured by overlying stool and bowel gas.Thoracolumbar curvature. Dixie kyphosis at junction of fused and nonfusedspine. Lumbar spine: Lateral views again show instrumented fusion hardware. Nocompression fracture. Transitional lumbosacral junction is possible.Numerous surgical clips overlie the abdomen. IMPRESSION: Instrumented thoracolumbar sacral fusion. us Arsen Christy MD IMG XR SPINE Final Result documented in this encounter Visit Diagnoses Diagnosis S/P lumbar spinal fusion Arthrodesis status S/P lumbar spinal fusion- Primary Arthrodesis status documented in this encounter Care Teams Open Shank Coverer Relationship Specialty Start Date End Date Guillermo Bass MD [address] [place] [address] PCP - General Internal Medicine 10/16/21 documented as of this encounter Additional Source Comments The information contained in this document represents components of the legal health record. It is not the complete legal health record.[facility]
--- OUTSIDE RECORDS SUMMARY | 2025-05-31 15:51 | XMS_ITS | Encounter Summary ---
Author Organization [facility] Address [address] [facility] [address] [place] [address] Phone Care Team Providers Care Manager Documentation Name Role Phone Guillermo Bass MD Primary Care Provider Encounter Details Date Type Department Care Team (Late st Contact Info) Description 12/24/2024 Procedure Pass [facility] Imaging - [place], Main [place] [address] [place] [address] Social History Tobacco Use Types Packs/Day Years [...] on filedocumented in this encounter Care Teams Manager Documentation Relationship Specialty Start Date End Date Guillermo Bass MD [address] [place] [address] PCP - General Internal Medicine 10/16/21 documented as of this encounter Additional Source Comments The information contained in this document represents components of the legal health record. It is not the complete legal health record.[facility]
--- OUTSIDE RECORDS SUMMARY | 2025-05-31 15:51 | XMS_ITS | Encounter Summary ---
Author Organization [facility] Address [address] [place] [address] [place] [address] Phone Care Team Providers Care Manager Technical Training Name Role Phone Guillermo Bass MD Primary Care Provider Guillermo Bass MD Primary Care Provider Encounter Details Date Type Department Care Team (Late st Contact Info) Description 10/24/2017 Procedure Pass [facility] Imaging - CT, Main [place] [address] [place], [place] [phone] Social History Tobacco Use Types Packs/Day Years [...] filedocumented in this encounter Care Teams Manager Technical Training Relationship Specialty Start Date End Date Guillermo Bass MD [address] [place] [phone] PCP - General Internal Medicine 01/10/17 10/15/21 Guillermo Bass MD [address] [place], [place] [phone] PCP - General Internal Medicine 10/16/21 documented as of this encounter Additional Source Comments The information contained in this document represents components of the legal health record. It is not the complete legal health record.[facility]
--- OUTSIDE RECORDS SUMMARY | 2025-05-31 15:51 | XMS_ITS | Clinical Summary ---
Author Organization [employer] [facility] it Address [address] [place] [address] Care Team Providers Care Marketing Ambassador Name Role Phone Lexy Lim FOREIGN DIPLOMAT Primary Care Provider [phone] Immunizations Name Administration Dates Next Due Moderna SARS-CoV-2 COVID-19, mRNA, LNP-S, preservative free 08/18/2021 Surgical History Surgery Date Site/Laterality Comments LAPAROSCOPIC GASTRIC BANDING PROCEDURE: LAP ADJUSTABLE GASTRIC BAND; COMMENT: placed, then removed 02/16 TONSILLECTOMY PROCEDURE: HISTORICAL TONSILLECTOMY LUMBAR FUSION 2016 PROCEDURE:LUMBAR FUSION;COMMENT:L4-Sa HYSTERECTOMY 09/2020 PROCEDURE:HYSTERECTOMY GASTRIC BYPASS 2015 PROCEDURE:GASTRIC BYPASS LAPAROSCOPIC GASTRIC BANDING 2009 PROCEDURE:LAPAROSCOPIC PLACEMENT GASTRIC RESTRICTIVE DEVICE FASCIOTOMY 2005 PROCEDURE:FASCIOTOMY;COMMENT:LLE TONSILLECTOMY PROCEDURE:TONSILLECTOMY Medical History Medical History Date Comments IBS (irritable bowel syndrome) 07/19/2011 D X:IBS (irritable bowel syndrome) Depression 07/19/2011 DX:Depression Migraine 07/19/2011 DX:Migraine Hypertension 07/19/2011 DX:Hypertension Obesity 07/19/2011 DX:Obesity Compartment syndrome (CMS/HCC V24) 08/16/2011 DX:Compartment syndrome (HCC) Hypothyroid 08/16/2011 DX:Hypothyroid Hypercholesteremia 08/16/2011 DX:Hyperchole steremia Lyme disease 08/16/2011 DX:Lyme disease Hypertension DX:Hypertension Depression DX:Depression Anxiety DX:Anxiety Migraines DX:Migraines Stomach ulcer DX:Stomach ulcer Family History Medical History Relation Name Comments Other: SIDS Brother 1 Hypertension Father CVA, COPD, asbe stosis, pontine hemorrhage Other: intestinal cancer Maternal Grandmother Heart attack Mother hypertension, e levated cholesterol Breast cancer Paternal Grandmother bilate ral Relation Name Status Comments Brother 1 Brother 2 Father Maternal Grandmother Mother Paternal Grandmother Social History Tobacco Use Types Packs/Day Years Used Date Smoking Tobacco: Never Alcohol Use Standard Drinks/Week Comments Yes 0 (1 standard drink = 0.6 oz pur e alcohol) Comments Unknown Sex and Gender Information Value Date Recorded Sex Assigned at Not on file Legal Sex Female 5:48 PM EST Gender Identity Not on file Sexual Orientation Not on file Obstetrics History Plan of Treatment Health Maintenance Due Date Last Done Comments Breast Cancer Screening 1975 Hepatitis B Vaccines (1 of 3 - 19+ 3-dose series) 1994 Cervical Cancer Screening: P ap Smear 1996 DTaP,Tdap,and Td Vaccines (2 - Td or Tdap) 12/11/2020 12/11/2010 Cholesterol Screening (Lipid Panel) 08/10/2022 Colorectal Cancer Screening: Colonoscopy 08/10/2022 HIV Screening 08/10/2022 Hepatitis C Screening 08/10/2022 Social Influencers of Health Screening 08/10/2022 Hypertension/CHF/CAD Annual BMP Blood Test 08/20/2022 Depression Screening 09/08/2024 COVID-19 Vaccine (2 - 2024-2 6 season) 2025 08/18/2021 Influenza Vaccine (#1) 2025 2011 HIB Vaccines Aged Out No longer eligi ble based on patient's age to complete this topic HPV Vaccines Aged Out No longer eligi ble based on patient's age to complete this topic Hepatitis A Vaccines Aged Out No long er eligible based on patient's age to complete this topic IPV Vaccines Aged Out No longer eligi ble based on patient's age to complete this topic MMR Vaccines Aged Out No longer eligi ble based on patient's age to complete this topic Meningococcal ACWY Vaccine Aged Out N o longer eligible based on patient's age to complete this topic Meningococcal B Vaccine Aged Out No l onger eligible based on patient's age to complete this topic Pneumococcal Vaccine: Pediat rics (0 to 5 Years) and At-Risk Patients (6 to 49 Years) Aged Out No longer eligi ble based on patient's age to complete this topic RSV Immunization Patients Un delilah 20 months Aged Out No longer eligible b ased on patient's age to complete this topic Varicella Vaccines Aged Out No longer eligible based on patient's age to complete this topic Care Teams Marketing Ambassador Relationship Specialty Start Date End Date Lexy Lim NP PCP - General 03/06/23
--- OUTSIDE RECORDS SUMMARY | 2025-05-31 15:52 | XMS_ITS | Encounter Summary ---
Author Organization [facility] Address [address] [facility] [address] [place] [phone] Phone Care Team Providers Care Care Tech Name Role Phone Guillermo Bass MD Primary Care Provider Guillermo Bass MD Primary Care Provider Reason for Visit * Reason Onset Date Comments Post Discharge Follow Up Call 02/11/2017 Encounter Details Date Type Department Care Team (Late st Contact Info) Description 02/11/2017 Telephone [facility] [address] [place] [address] Lisa Vasques RN [address] [place] [address] [email or web address] Discharge Follow Up Call Social History Tobacco Use Types Packs/Day Years [...] on filedocumented in this encounter Care Teams Care Tech Relationship Specialty Start Date End Date Guillermo Bass MD [address] [place] [phone] PCP - General Internal Medicine 01/10/17 10/15/21 Guillermo Bass MD [address] [place] [id number] PCP - General Internal Medicine 10/16/21 documented as of this encounter Additional Source Comments The information contained in this document represents components of the legal health record. It is not the complete legal health record.[facility]
--- OUTSIDE RECORDS SUMMARY | 2025-05-31 15:52 | XMS_ITS | Clinical Summary ---
Author Organization [facility] Address [address] [place] [address] Care Team Providers Care Bi Data Architect Name Role Phone Lexy Lim APRN Primary Care Provider [phone] Allergies Active Allergy Reactions Criticality Noted Date Comments Griseofulvin Hives 07/19/2011 Iodine Rash Low 12/27/2016 Shellfish Allergy Nausea And Vomiting,Itching,Swelling Medium 12/27/2016 Medications Medication Sig Dispensed Refills Start Date End Date Status buPROPion (WELLBUTRIN SR) 100 MG 12 hr tablet Take 100 mg by mouth daily. 0 Active DULoxetine (CYMBALTA) DR capsule 60 mg Take 60 mg by mouth daily. 0 05/02/2021 Active DULoxetine (CYMBALTA) DR capsule 20 mg Take 20 mg by mouth every night at bedtime. 0 04/18/2021 Active lisinopril (PRINIVIL,ZESTRIL) tablet 20 mg Take 20 mg by mouth daily. 0 Active loratadine (CLARITIN) 10 MG tablet Take 10 mg by mouth daily. 0 05/03/2021 Active LORazepam (ATIVAN) 0.5 MG tablet Take 0.5 mg by mouth daily as needed. 0 04/07/2021 Active metoprolol succinate (TOPROL-XL) 24 hr tablet 50 mg Take 50 mg by mouth daily. 0 12/20/2019 Active montelukast (SINGULAIR) 10 MG tablet Take 10 mg by mouth daily. 0 Active traZODone (DESYREL) 50 MG tablet Take 50-100 mg by mouth. 0 04/26/2019 Active pantoprazole (PROTONIX) 40 MG tablet Take 40 mg by mouth 2 (two) times a day. 0 Active oxyCODONE-acetaminop hen (PERCOCET) 5-325 MG per tablet Take 1 tablet by mouth every 4 (four) hours as needed for pain. 12 tablet 0 05/18/2021 Active rivaroxaban (Xarelto Starter Pack) 15 & 20 MG TBPK Take 15 mg orally twice daily for 21 days, the take 20 mg orally daily. 51 tablet 0 05/09/2022 Active tiZANidine (ZANAFLEX) 4 MG capsule Take 1 capsule (4 mg total) by mouth 3 (three) times a day as needed for muscle spasms. 12 capsule 0 03/06/2023 Active Active Problems No known active problems Social History Tobacco Use Types Packs/Day Years Used Date Smoking Tobacco: Never Alcohol Use Standard Drinks/Week Comments Yes 0 (1 standard drink = 0.6 oz pur e alcohol) social Sex and Gender Information Value Date Recorded Sex Assigned at Female 05/18/2021 11:11 PM EDT Gender Identity Female 05/18/2021 11:47 PM EDT Sexual Orientation Not on file Job Start Date Occupation Industry Not on file Not on file Not on file Last Filed Vital Signs Vital Sign Reading Time Taken Comments Blood Pressure 177/105 07/18/2023 9:00 PM EST Pulse 82 07/18/2023 9:00 PM EST Temperature 37.2 C (99 F) 07/18/2023 9:00 PM EST Respiratory Rate 17 07/18/2023 9:00 PM EST Oxygen Saturation 98% 07/18/2023 9:00 PM EST Inhaled Oxygen Concentration - - Weight 97.1 kg (214 lb) 05/08/2022 11:58 PM EDT Height 167.6 cm (5' 6 ) 05/08/2022 11:58 PM EDT Body Mass Index 34.54 05/08/2022 11:58 PM EDT Plan of Treatment Health Maintenance Due Date Last Done Comments Hepatitis B Vaccines (1 of 3 - 3-dose series) 1975 Hepatitis C Screening 1975 Depression Screening 1987 Preventative Health Evaluation 1993 Cervical Cancer Screening (Pap Smear) 1996 Colon Cancer Screening (Colonoscopy) 2020 DTap / Tdap / Td (3 - Td or Tdap) 12/11/2020 12/11/2010, 08/15/2010 COVID-19 Vaccine ( season) 2025 08/18/2021, 11/21/2020, 10/24/2020 Influenza Vaccine (#1) 2025 , 07/13/2020, 07/13/2020, Additional history exists Pneumococcal Vaccine Aged Out No long er eligible based on patient's age to complete this topic RSV Ped < 20 months Aged Out No longe r eligible based on patient's age to complete this topic Care Teams Bi Data Architect Relationship Specialty Start Date End Date Lexy Lim APRN [address] [facility] [address] PCP - General Nurse Practitioner 03/06/23
--- OUTSIDE RECORDS SUMMARY | 2025-05-31 15:52 | XMS_ITS | Encounter Summary ---
Author Organization [facility] Address [address] [place] [address] [place] [address] Phone Care Team Providers Care Pressurised Container Filler Name Role Phone Guillermo Bass MD Primary Care Provider Guillermo Bass MD Primary Care Provider Encounter Details Date Type Department Care Team (Late st Contact Info) Description 07/08/2017 Procedure [facility] - [facility], Main [place] [address] [place], [place] [id number] Social History Tobacco Use Types Packs/Day Years [...] on filedocumented in this encounter Care Teams Pressurised Container Filler Relationship Specialty Start Date End Date Guillermo Bass MD [address] [place] [phone] PCP - General Internal Medicine 01/10/17 10/15/21 Guillermo Bass MD [address] [place], [place] [phone] PCP - General Internal Medicine 10/16/21 documented as of this encounter Additional Source Comments The information contained in this document represents components of the legal health record. It is not the complete legal health record.[facility]
--- OUTSIDE RECORDS SUMMARY | 2025-05-31 15:52 | XMS_ITS | Encounter Summary ---
Author Organization [facility] Address [address] [facility] [address] [place] [address] Phone Care Team Providers Care Wafer Production Lead Worker Name Role Phone Guillermo Bass MD Primary Care Provider Encounter Details Date Type Department Care Team (Late st Contact Info) Description 10/07/2022 Procedure Pass [facility] [address] [place] [address] Social History Tobacco Use Types Packs/Day Years Used Date Smoking Tobacco: Never Smokeless Tobacco: Never Alcohol Use Standard Drinks/Week Comments No 0 (1 standard drink = 0.6 oz pur e alcohol) Intimate Partner Violence Answer Date R ecorded [...] Author No Risk Indicated 10/07/2022 5:36 PM Nrey Eduardo RN * Amelia Suicide Severity Rating Scale (Screener/Recent Self-Report) Question [...] on filedocumented in this encounter Care Teams Wafer Production Lead Worker Relationship Specialty Start Date End Date Guillermo Bass MD [address] [place] [id number] PCP - General Internal Medicine 10/16/21 documented as of this encounter Additional Source Comments The information contained in this document represents components of the legal health record. It is not the complete legal health record.[facility]
--- OUTSIDE RECORDS SUMMARY | 2025-05-31 15:52 | XMS_ITS | Patient Health Record ---
Author Organization [facility] Address [address] [place] [address] Care Team Providers Care Line Service Attendant Name Role Phone Mirela MORENO, Candace Primary Care Provider Unavail able Dawit Malone Unavailable [phone] Allergies Allergen (clinical drug ingredient) Drug/Non Drug Allergy documented on EMR Reaction Allergy Type Onset Date Status Fruit Fruit (uncoded) Unknown Allergy Acti ve Estephania-PEG Unknown Drug Allergy Active Reason For Referral No Information Medications Medication SIG (Take, Route, Frequency, Duration) Notes Start Date End Date Status Pristiq 50 MG Oral; Duration: 30 Active Lisinopril 40 MG Oral; Duration: 90 Active dilTIAZem HCl ER Coated Beads 180 MG Oral; Duration: 90 Active Jublia 10 % as directed External ly Apply daily to nails; Duration: 30 days 12/19/2014 Active Ativan 0.5 MG 1 tablet as needed O rally Once a day Active SUMAtriptan Succinate 25 MG Orally Active Social History Tobacco use other than smoking: Question Answer Notes Are you an other tobacco user? No Problems Problem Type SNOMED Code ICD Code Onset Dates Problem Status W/U Status Risk Notes Problem Ingrowing nail (970508556) Ingrowing Nail (703.0) Active confirmed Problem Onychomycosis (850446300) Onychomycosis (110.1) Active confirmed Problem Pain in limb (10566072) Pain in Limb (729.5) Active confirmed Plan Of Treatment Pending Test Test Name Order Date [id number] Plate 12/19/2014 Insurance Providers Payer Name Payer Address Payer Phone Subscriber Number Group Number Insured Name Patient Relationship to Insured Coverage Start Date Coverage End Date [facility] [address] [place] [address] [phone] [id number] Elizabeth Carreno Self - patient is the insured Medical (General) History Medical History History ICD Code Back,Hip,and Knee pain Chicken pox Dementia High blood pressure Migraines Reflux Surgical History Surgery Date(Month/Year) tonsillectomy 15 yrs old lap band 2008, 2010 carpal tunnel release right 2011 fasciiotomy lower left leg 2004
== END 2025-05-31 13:51 | disposition home or self-care (01) ==
LOC: HO.HCC 12:57
PROVIDERS: Visit Provider Clinical Nurse Specialist Psychiatric/Mental Health
DX: R52 Pain, unspecified (principal)
CPT/HCPCS: 99203

== ENCOUNTER → 2025-05-31 12:57 | Outpatient (BNVA) | payer MEDICARE, SELFPAY | PROVIDERS: Visit Provider Clinical Nurse Specialist Psychiatric/Mental Health | DX: Z76.89 Persons encountering health services in other specified circumstances (principal); M54.9 Dorsalgia, unspecified; G89.29 Other chronic pain | CPT/HCPCS: 99202 ==

== ENCOUNTER 2025-06-23 11:30 | Outpatient (RCR) | payer MEDICARE, SELFPAY ==
[2025-05-25 09:34] VITALS: BMI 41.3
[2025-05-25 10:27] VITALS: BP 148/96; PULSE 68; TEMP 37.1
--- NOTE | 2025-05-25 10:51 | PC.ADMIT ---
Patient is a 49 year old female who was referred to [facility] by her therapist d/t increased depression, anxiety, and PTSD sxs. Patient has a history of opiate use disorder and reports being prescribed opiate medications after back surgery that developed into an addiction to opiates. She stated at her worst she was spending $300-1000 a day on opiate pills. She also reports obtaining prescription fentanyl from a friend. She reports she detoxed herself off opiates including her prescription Oxycodone and Oxycontin (last filled March 10, 2025) on February 15, 2025 with the exception of one time use of Dilaudid a week and a half ago. Patient wants to learn to cope with her emotions in a healthy way. She reports being interested in MAT at the [facility]. Patient has an appointment with [facility] on 05/31/2025 at 1:00 pm. Patient reports she is unemployed since her back issues. Patient stated, I haven't worked since 2019 . Reports being for the past three years. Patient reports stresses in the home include living with 9 others in the home. Patient reports history of charged with A&B. Patient stated, February 26 last time I drank had argument with went after him with a knife blanker press operator called and got arrested . I was charged with A&B, charges dropped . Patient reports history of a seizure disorder and is taking Keppra daily as prescribed. She reports history of having three seizures with loss of consciousness and convulsions. She reports last seizure was 1.5 years ago. [facility] staff is aware. Patient is alert and oriented x4. She is calm and cooperative. She presented with depressed mood and anxious affect. She denied SI, no HI. She received a copy of her safety plan if needed. Medications updated with patient and patient's pharmacy. She reports taking medications as prescribed with the exception of forgetting to take her Lisinopril today. BP 148/96. P 68.
--- NOTE | 2025-05-26 12:06 | PC.NURSE ---
Obtained a LAL from patient. She stated it is going to come up positive for opiates. Stated she put on a fentanyl patch this morning that she buys from a friend (who has a prescription for this) that is not prescribed to Elizabeth. Elizabeth has told me she has chronic pain issues and has been prescribed Oxycontin/Oxycodone however this escalated to her buying pills off the street which she stated she is not longer doing. In February she detoxed herself off her prescription medications as she did not want to be on them anymore. Patient stated she her chronic pain makes it difficult for her to get any sleep at night. Patient has an appointment with the [facility] for MAT on Friday at 1:00pm for MAT. Elizabeth stated she also spoke to Magda after the substance group today. [facility] staff is aware including Dr. Zavala.
--- NOTE | 2025-05-26 15:00 | HO.PHP ---
Client case was reviewed and opened in teams.
[2025-05-27 08:44] LABS: Cannabinoid Screen Urine POSITIVE (Not Detect)
--- NOTE | 2025-05-27 12:34 | HO.PHP ---
PHP staff member placed a referral for med management through [facility] and is awaiting on an appointment date and time.
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
--- NOTE | 2025-05-31 10:49 | HO.PHP ---
PHP staff member reached out to [facility] to gather Elizabeth's appointment time for Med Management, which will be scheduled for June 13, 2025 at 11 AM with Bijal Mckeon at [address] [place] [address], [place] [address]. .
--- NOTE | 2025-06-02 13:45 | P.PNPSP_ITS ---
Subjective Subjective Date of Service: 06/02/25 Reason For Visit: [id number] Healthcare Proxy: No Guardianship: No Medical Problems Affecting Mental Status: No Interim History: Elizabeth was seen today in a follow-up appointment. Available records were reviewed. The plan has been for her to switch from Cymbalta which is no longer that effective to Pristiq on which she had done much better previously. She did not start the process because she was not clear how quickly to proceed with the tapering off of Cymbalta and starting the Pristiq. I reviewed what symptoms to watch out for in she can decrease the Cymbalta by 30 mg every 3-6 days, keeping in mind her physical response to that process and the need to slow down the process if necessary. When she is at 60 mg of Cymbalta she will initiate the Pristiq and proceed with tapering off of the Cymbalta. For now she will stay on Rexulti. Review of Systems Review of Systems Yes all other systems are reviewed and are negative Mental Status Exam Mental Status Exam Narrative: In today's visit she is alert, oriented and pleasant. Normal speech. Good eye contact. Affect is appropriate and varied. No acute signs of psychosis. No SI/HI upon inquiry. She is able to move all limbs. No gait abnormalities. Judgment is intact Diagnostics Vital Signs (24Hr): BMI result Body Mass Index 41.3 Assessment & Plan Assessment & Plan (1) MDD (major depressive disorder), recurrent episode, moderate: Status: Acute Code(s): F33.1 - Major depressive disorder, recurrent, moderate Plan She will proceed with tapering down and off of Cymbalta and initiating Pristiq and continuing Rexulti Patient educated on: diagnosis and medication risk/benefits Certification I certify that partial hospital treatment is medically necessary due to the symptoms and problems resulting from the patient's mental illness and the failure to treat the patient at the partial hospital level of care would likely result in the patient requiring inpatient psychiatric care which could not be prevented at a less intensive level of care. Total time managing care of this patient today ____ minutes. Discharge Plan Discharge Attending provider: Milady Zavala Medications: New pregabalin 25 mg capsule 25 mg PO TID Qty: 30 0RF desvenlafaxine succinate 25 mg tablet extended release 24 hr 25 mg PO DAILY Qty: 30 0RF duloxetine 30 mg capsule, delayed rel sprinkle 90 mg PO DAILY Qty: 45 0RF clonidine HCl 0.1 mg tablet 0.1 mg PO BEDTIME PRN (Reason: sleep) Qty: 20 0RF Continued metoprolol succinate 50 mg tablet extended release 24 hr 50 mg PO DAILY levetiracetam 500 mg tablet extended release 24 hr 1,500 mg PO BEDTIME Rexulti 0.5 mg tablet 0.5 mg PO DAILY Rx Instructions: TAKE 1 TABLET BY MOUTH DAILY TAKE WITH 1 MG TABLET DAILY Rexulti 1 mg tablet 1 mg PO DAILY Rx Instructions: TAKE 1 TABLET BY MOUTH DAILY. TAKE WITH 0.5MG TABLET loratadine [Allergy Relief (loratadine)] 10 mg tablet 10 mg PO DAILY lisinopril 20 mg tablet 20 mg PO DAILY pantoprazole 40 mg tablet,delayed release (DR/EC) 40 mg PO DAILY No Action sumatriptan succinate 50 mg tablet See Rx Instructions .ROUTE .COMPLEX Rx Instructions: TAKE 1 TABLET BY MOUTH DAILY NEEDED FOR MIGRAINE HEADACHE. MAY REPEAT DOSE AFTER 2 HOURS UP TO A. MAX OF 2. duloxetine [Cymbalta] 60 mg capsule,delayed release(DR/EC) 60 mg PO BID Stand Alone Forms: Patient Portal Discharge page Print Language: Vincentian
--- NOTE | 2025-06-03 09:11 | HO.PHP ---
Elizabeth was not scheduled for program today due to having prior engagements.
--- NOTE | 2025-06-10 21:55 | HO.PHPPROGNO ---
Subjective Subjective Date of Service: 06/10/25 Reason For Visit: [id number] Interim History: Patient seen for follow up. Overall had a good week . She has been tolerating transitioning off Cymbalta onto Pristiq. She feels she is doing well with this medication and is agreeable to increasing dose to 50 mg Pristiq. Will be tapering off Cymbalta in nex couple days. ANxiey remains main problem and she actually has only been taking pregabalin 25 mg once a day. This had not been increased in interim and was unaware to be taking TID. Denies any sedation or adverse effects. Denies h/h/SI. No AI or HI. Medication Compliance: Yes Side effects from medications: No Attending Groups: Yes Review of Systems Acute medical concerns: No Review of Systems Review of Systems Yes all other systems are reviewed and are negative Mental Status Exam Mental Status Exam Narrative: In today's visit she is alert, oriented and pleasant. Normal speech. Good eye contact. Affect is appropriate and varied. No acute signs of psychosis. No SI/HI upon inquiry. She is able to move all limbs. No gait abnormalities. Judgment is intact Diagnostics Vital Signs (24Hr): BMI result Body Mass Index 41.3 Assessment & Plan Assessment & Plan (1) MDD (major depressive disorder), recurrent episode, moderate: Status: Acute Code(s): F33.1 - Major depressive disorder, recurrent, moderate (2) SHANA (generalized anxiety disorder): Status: Acute Code(s): F41.1 - Generalized anxiety disorder (3) Pain disorder associated with psychological factors and medical condition: Status: Acute Code(s): F45.42 - Pain disorder with related psychological factors Plan continue PHP taper off duloxetine thsi week, currently at 30 mg titrate desvenlafaxine to 50 mg qd to target depression, anxiety, pain titrate pregabalin 25 mg from QD to TID, and will plan to titrate further to 50 mg TID to target pain, anxiety continue clonidine at 0.2 mg qhs prn sleep continue regular medications for now Routine lab work as indicated EKG, routine for baseline QTc for medication considerations as indicated UDS as indicated MassPat reviewed Continue to monitor Patient educated on: diagnosis and medication risk/benefits Informed Consent: understands Reason for contiued partial hosp. stay Substantial Risk for: med/psych decompensation Certification I certify that partial hospital treatment is medically necessary due to the symptoms and problems resulting from the patient's mental illness and the failure to treat the patient at the partial hospital level of care would likely result in the patient requiring inpatient psychiatric care which could not be prevented at a less intensive level of care. Total time managing care of this patient today _30___ minutes. Discharge Plan Discharge Attending provider: Milady Zavala Medications: New pregabalin 25 mg capsule 25 mg PO TID Qty: 30 0RF desvenlafaxine succinate 25 mg tablet extended release 24 hr 25 mg PO DAILY Qty: 30 0RF duloxetine 30 mg capsule, delayed rel sprinkle 90 mg PO DAILY Qty: 45 0RF Continued metoprolol succinate 50 mg tablet extended release 24 hr 50 mg PO DAILY levetiracetam 500 mg tablet extended release 24 hr 1,500 mg PO BEDTIME Rexulti 0.5 mg tablet 0.5 mg PO DAILY Rx Instructions: TAKE 1 TABLET BY MOUTH DAILY TAKE WITH 1 MG TABLET DAILY Rexulti 1 mg tablet 1 mg PO DAILY Rx Instructions: TAKE 1 TABLET BY MOUTH DAILY. TAKE WITH 0.5MG TABLET loratadine [Allergy Relief (loratadine)] 10 mg tablet 10 mg PO DAILY lisinopril 20 mg tablet 20 mg PO DAILY pantoprazole 40 mg tablet,delayed release (DR/EC) 40 mg PO DAILY Changed clonidine HCl 0.1 mg tablet 0.1 - 0.2 mg PO BEDTIME PRN (Reason: sleep) Qty: 60 0RF No Action sumatriptan succinate 50 mg tablet See Rx Instructions .ROUTE .COMPLEX Rx Instructions: TAKE 1 TABLET BY MOUTH DAILY NEEDED FOR MIGRAINE HEADACHE. MAY REPEAT DOSE AFTER 2 HOURS UP TO A. MAX OF 2. duloxetine [Cymbalta] 60 mg capsule,delayed release(DR/EC) 60 mg PO BID Stand Alone Forms: Patient Portal Discharge page Print Language: Ukrainian
--- NOTE | 2025-06-13 08:09 | HO.PHP ---
[facility] staff member followed up with Elizabeth due to her not being in attendance to program today. Elizabeth shared that she wasn't scheduled to be in program but she is struggling to see tomorrow being her last day because she had a challenging weekend. Elizabeth voiced that she had gone to her camper this weekend with just her children and her was not with her. Elizabeth shared that she realized over the weekend that she has been codependent on her and it was challenging to try to manage her children's behaviors at times. Elizabeth expressed that this morning she woke up not feeling well, in which she was shaky. Elizabeth acknowledged that she has had some good days but would like additional time in the program because she missed , left early Friday, and is not scheduled today. [facility] staff member informed Elizabeth that we could extend her time until June 17, 2025 but she cannot miss any more days. Elizabeth appeared receptive. [facility] staff member assessed for safety. Elizabeth reported no concerns around SI, plan or intent and will be in attendance to program tomorrow.
--- NOTE | 2025-06-16 15:57 | HO.PHP ---
[facility] staff member met with Elizabeth to follow up with her. Elizabeth informed the clinician that lately she has been struggling, she thought she was making improvements but noted that some things had occurred over the weekend that made her feel differently and now her daughter got suspended from school so that is creating for another stressor. There are other stressors that are occurring with her children, such as there father being ill and may pass away. Elizabeth voiced that she is having difficulty with supporting them because she has not addressed the loss of her mother yet. Elizabeth also talked about her relationship with her . [facility] staff member engaged in active listening and provided support as needed. Elizabeth became tearful throughout the conversation but was able to regulate and return back to group.
--- NOTE | 2025-06-17 23:55 | P.PNPSP_ITS ---
Subjective Subjective Date of Service: 06/16/25 Reason For Visit: [id number] Interim History: Patient seen for follow-up. She reports having in feeling good but then has had a difficult week news that her ex-'s health is failing. Says that she has relied on her ex- for emotional support Her children particularly her 17-year-old daughter is taking it hard, lots of anger sadness overwhelming sadness , she has been trying to reach out to her older daughter (who is more recently estranged from her) was rebuffed. She with new provider and feels they had a positive appointment. Denies any medication side effects, Denies SI, HI, AH, VH. Medication Compliance: Yes Side effects from medications: No Attending Groups: Yes Review of Systems Acute medical concerns: No Review of Systems Review of Systems Yes all other systems are reviewed and are negative Mental Status Exam Mental Status Exam Narrative: In today's visit she is alert, oriented and pleasant. Normal speech. Good eye contact. Mood sad . Affect tearful at moments, congruent. No acute signs of psychosis. No SI/HI upon inquiry. She is able to move all limbs. No gait abnormalities. Judgment is intact Diagnostics Vital Signs (24Hr): BMI result Body Mass Index 41.3 Assessment & Plan Assessment & Plan (1) MDD (major depressive disorder), recurrent episode, moderate: Status: Acute Code(s): F33.1 - Major depressive disorder, recurrent, moderate (2) SHANA (generalized anxiety disorder): Status: Acute Code(s): F41.1 - Generalized anxiety disorder (3) Pain disorder associated with psychological factors and medical condition: Status: Acute Code(s): F45.42 - Pain disorder with related psychological factors Plan extend PHP taper duloxetine to 20 mg qd for 1-2 weeks then off continue desvenlafaxine 75-100 mg qd next week to target depression, anxiety, pain (continue to titrate continue to titrate pregabalin to 75 mg TID continue clonidine at 0.2 mg qhs prn sleep continue regular medications for now Routine lab work as indicated EKG, routine for baseline QTc for medication considerations as indicated UDS as indicated MassPat reviewed Continue to monitor Patient educated on: diagnosis, medication risk/benefits and substance abuse Informed Consent: understands Reason for contiued partial hosp. stay Substantial Risk for: med/psych decompensation Certification I certify that partial hospital treatment is medically necessary due to the symptoms and problems resulting from the patient's mental illness and the failure to treat the patient at the partial hospital level of care would likely result in the patient requiring inpatient psychiatric care which could not be prevented at a less intensive level of care. Total time managing care of this patient today __30__ minutes. Discharge Plan Discharge Attending provider: Milady Zavala Medications: New pregabalin 100 mg capsule 100 mg PO TID Qty: 30 0RF desvenlafaxine 100 mg tablet extended release 24 hr 100 mg PO DAILY Qty: 30 0RF duloxetine 20 mg capsule, delayed rel sprinkle 20 mg PO DAILY Qty: 30 0RF desvenlafaxine succinate [Pristiq] 50 mg tablet extended release 24 hr 100 mg PO DAILY 15 Days Qty: 30 0RF Continued metoprolol succinate 50 mg tablet extended release 24 hr 50 mg PO DAILY sumatriptan succinate 50 mg tablet See Rx Instructions .ROUTE .COMPLEX Rx Instructions: TAKE 1 TABLET BY MOUTH DAILY NEEDED FOR MIGRAINE HEADACHE. MAY REPEAT DOSE AFTER 2 HOURS UP TO A. MAX OF 2. levetiracetam 500 mg tablet extended release 24 hr 1,500 mg PO BEDTIME Rexulti 0.5 mg tablet 0.5 mg PO DAILY Qty: 30 0RF Rx Instructions: TAKE 1 TABLET BY MOUTH DAILY TAKE WITH 1 MG TABLET DAILY Rexulti 1 mg tablet 1 mg PO DAILY Qty: 30 0RF Rx Instructions: TAKE 1 TABLET BY MOUTH DAILY. TAKE WITH 0.5MG TABLET loratadine [Allergy Relief (loratadine)] 10 mg tablet 10 mg PO DAILY lisinopril 20 mg tablet 20 mg PO DAILY pantoprazole 40 mg tablet,delayed release (DR/EC) 40 mg PO DAILY Changed clonidine HCl 0.1 mg tablet 0.1 - 0.2 mg PO BEDTIME PRN (Reason: sleep) Qty: 60 0RF Discontinued duloxetine [Cymbalta] 60 mg capsule,delayed release(DR/EC) 60 mg PO BID Stand Alone Forms: Patient Portal Discharge page Patient Education: Depression (ED), Depression (DC), Anxiety (ED) Print Language: Belarusian
--- NOTE | 2025-06-21 16:13 | HO.PHP ---
PHP admin, received a VM from Elizabeth stating that she will not be in attendance to program due to being in back pain that is excruciating and she is unable to move. Elizabeth disclosed that she is aware that it is her discharge date and is uncertain to if she will be discharged over the phone. [facility] staff member reached out to Elizabeth to inform her to come in tomorrow and and her new discharge date will be so she can meet with the med provider. Elizabeth was receptive. Elizabeth did not report any safety concerns and noted she will be in attendance to program tomorrow.
--- NOTE | 2025-06-23 22:33 | P.PNPSP_ITS ---
Subjective Subjective Date of Service: 06/23/25 Reason For Visit: [id number] Interim History: Patient seen for follow-up, anticipating discharge at the end of program today.? Feel good, I think I'm 65% better Reports that her overall funcitoning including ADLs have improved. I feel more motivated, like I have a sense of purpose like hope for the future, I;ve been showering everyday, brushing my teeth.... I'm a little nervous abuot leaving but I think I'm okay . Has her psychiatry appointment on 07/06. Remains on 20 mg duloxetine and feels she should remain there for another week. GOing down, I feel it, a little more anxiety, a little headache. Denies any current symptoms of serotonin withdrawal. Reports no acute issues or concerns. Medication compliant, medications well- tolerated. Denies any adverse effects.? Mood is stable.? Denies any hopelessness or SI. Denies thoughts of harming self or others at this time. Denies any aggressive ideation or HI. Denies any paranoia or AH or VH. Sleep, appetite, energy stable. Review of Systems Review of Systems Yes all other systems are reviewed and are negative Mental Status Exam Mental Status Exam Narrative: Alert, oriented, in no acute distress. Calm, cooperative. Mood stable, affect appropriate. Speech normal. Thought process linear, coherent, more goal- directed. Thought content related to stressors, future-oriented, denies any helplessness, hopelessness or SI.? No aggressive ideation or HI. No paranoia or delusional content elicited. No evidence of psychosis. Insight and judgment fair-good. Diagnostics Vital Signs (24Hr): BMI result Body Mass Index 41.3 Assessment & Plan Assessment & Plan (1) MDD (major depressive disorder), recurrent episode, moderate: Status: Acute Code(s): F33.1 - Major depressive disorder, recurrent, moderate (2) SHANA (generalized anxiety disorder): Status: Acute Code(s): F41.1 - Generalized anxiety disorder (3) Pain disorder associated with psychological factors and medical condition: Status: Acute Code(s): F45.42 - Pain disorder with related psychological factors Plan [facility]charge from [facility] Continue regular medications? Refills sent to pharmacy Will defer further medication management to outpatient provider *Safety plan reviewed *Discharge diagnoses, treatment course, discharge plan have been reviewed with patient (including medication regime, medication management, potential side effects) as well as treatment rationale were also revisited *Discharge paperwork signed and given to patient, copy sent for scanning to chart Patient educated on: diagnosis and medication risk/benefits Informed Consent: understands Reason for contiued partial hosp. stay Substantial Risk for: stable for discharge Certification I certify that partial hospital treatment is medically necessary due to the symptoms and problems resulting from the patient's mental illness and the failure to treat the patient at the partial hospital level of care would likely result in the patient requiring inpatient psychiatric care which could not be prevented at a less intensive level of care. Total time managing care of this patient today __30__ minutes. Discharge Plan Discharge Attending provider: Milady Zavala Medications: New pregabalin 100 mg capsule 100 mg PO TID Qty: 30 0RF desvenlafaxine 100 mg tablet extended release 24 hr 100 mg PO DAILY Qty: 30 0RF duloxetine 20 mg capsule, delayed rel sprinkle 20 mg PO DAILY Qty: 30 0RF desvenlafaxine succinate [Pristiq] 50 mg tablet extended release 24 hr 100 mg PO DAILY 15 Days Qty: 30 0RF Continued metoprolol succinate 50 mg tablet extended release 24 hr 50 mg PO DAILY sumatriptan succinate 50 mg tablet See Rx Instructions .ROUTE .COMPLEX Rx Instructions: TAKE 1 TABLET BY MOUTH DAILY NEEDED FOR MIGRAINE HEADACHE. MAY REPEAT DOSE AFTER 2 HOURS UP TO A. MAX OF 2. levetiracetam 500 mg tablet extended release 24 hr 1,500 mg PO BEDTIME Rexulti 0.5 mg tablet 0.5 mg PO DAILY Qty: 30 0RF Rx Instructions: TAKE 1 TABLET BY MOUTH DAILY TAKE WITH 1 MG TABLET DAILY Rexulti 1 mg tablet 1 mg PO DAILY Qty: 30 0RF Rx Instructions: TAKE 1 TABLET BY MOUTH DAILY. TAKE WITH 0.5MG TABLET loratadine [Allergy Relief (loratadine)] 10 mg tablet 10 mg PO DAILY lisinopril 20 mg tablet 20 mg PO DAILY pantoprazole 40 mg tablet,delayed release (DR/EC) 40 mg PO DAILY Changed clonidine HCl 0.1 mg tablet 0.1 - 0.2 mg PO BEDTIME PRN (Reason: sleep) Qty: 60 0RF Discontinued duloxetine [Cymbalta] 60 mg capsule,delayed release(DR/EC) 60 mg PO BID Stand Alone Forms: Patient Portal Discharge page Patient Education: Depression (ED), Depression (DC), Anxiety (ED) Print Language: Kazakh
== END 2025-06-23 23:59 | disposition home or self-care (01) ==
LOC: HO.PHPA 11:30
PROVIDERS: Visit Provider Psychiatry & Neurology Psychiatry
DX: F33.1 Major depressive disorder, recurrent, moderate (principal); F41.1 Generalized anxiety disorder; F45.42 Pain disorder with related psychological factors; Z62.810 Personal history of physical and sexual abuse in childhood; Z79.899 Other long term (current) drug therapy
CPT/HCPCS: 80307; 90791; 90853